=== PATIENT | female | born 1960 | race Caucasian/White ===

== ENCOUNTER 2021-11-28 20:35 | Inpatient (IN) | payer OTHER ==
[~2021-11-28] VITALS: Ht 167.6 cm; Wt 65.1 kg
--- NOTE | 2021-11-28 20:48 | NUR ---
[id number] STERNAL CHEST PAIN RADIATING TO LEFT SHOULDER X YESTERDAY 8 HEADACHE. NOTED WITH ELEVATED BP 189/106. PT ANXIOUS. PATIENT ALERT AND ORIENTED X3. AMBULATORY WITH NON LABORED BREATHING IN BED 11 ON MONITOR AWAITING MD PRATHER.
--- NOTE | 2021-11-28 20:50 | NUR ---
URINE COLLECTED AND SENT TO LAB
--- NOTE | 2021-11-28 20:53 | NUR ---
BLOOD COLLECTED AND SENT TO LAB
--- NOTE | 2021-11-28 20:59 | NUR ---
EMT @ BEDSIDE FOR EKG.
--- NOTE | 2021-11-28 21:11 | NUR ---
CALLED LAB FOR SPECIMEN PICKUP.
[2021-11-28 21:30] LABS: BASOPHILS # (AUTO) 0.1 K/uL (0.0-0.2); BASOPHILS % (AUTO) 0.8 % (0.0-2.0); EOSINOPHILS % (AUTO) 1.1 % (0.0-6.0); HEMATOCRIT 34 % (33-45); HEMOGLOBIN 11.5 g/dL (11.5-14.8); LYMPHOCYTES # (AUTO) 3.2 K/uL (0.8-4.8); LYMPHOCYTES % (AUTO) 34.9 % (20.0-44.0); MEAN CORPUSCULAR HGB CONC 34 g/dl (31.0-36.0); MEAN CORPUSCULAR VOLUME 86 fL (82-100); NEUTROPHILS # (AUTO) 4.9 K/uL (1.8-8.9); NEUTROPHILS % (AUTO) 52.2 % (43.0-81.0); PLATELET COUNT (AUTO) 413 K/uL (150-450); RED BLOOD CELL COUNT(AUTO) 3.99 MIL/uL (4.0-5.2); WHITE BLOOD COUNT (AUTO) 9.3 K/uL (4.3-11.0)
[2021-11-28 21:43] LABS: CALCIUM, SERUM 8.4 mg/dL (8.5-10.1); CARBON DIOXIDE 23 mmol/L (21-32); CHLORIDE 106 mmol/L (98-107); CREATININE 1.1 mg/dL (0.6-1.3); GLUCOSE 279 mg/dL (74-106); POTASSIUM 3.8 mmol/L (3.5-5.1); SODIUM SERUM 139 mmol/L (136-145); UREA NITROGEN, BLOOD 20 mg/dL (7-18)
[2021-11-28] MEDS ORDERED: ASPIRIN 81 MG TAB.CHEW ONE (22:16)
--- NOTE | 2021-11-28 22:24 | NUR ---
ASSISTED PATIENT TO RESTROOM.
--- NOTE | 2021-11-28 22:24 | NUR ---
COVID SWAB DONE AND SENT TO LAB
[2021-11-28] MEDS ORDERED: ASPIRIN 81 MG TAB.CHEW PO ONE (22:30)
[2021-11-28] MEDS ORDERED: MAG HYDROX/AL HYDROX/SIMETH 30 ML UDC PO PRN (23:30)
[2021-11-28] MEDS ORDERED: MAGNESIUM HYDROXIDE 30 ML UDC PO PRN (23:30)
[2021-11-28] MEDS ORDERED: Z GUARD REMEDY 4 OZ OINT TP PRN (23:30)
[2021-11-28] MEDS ORDERED: DEXTROSE 50%-WATER 50 ML DISP.SYRIN IV PRN (23:30)
--- NOTE | 2021-11-28 23:47 | NUR ---
REPORT GIVEN TO AMINAH ASH
--- NOTE | 2021-11-28 23:48 | NUR ---
PATIENT BEING TRANSFERRED TO [facility] VIA ACLS.
[2021-11-29] VITALS: BP 159/75
[2021-11-29] MEDS: ENOXAPARIN SODIUM 40 MG/0.4 ML DISP.SYRIN SQ SCH ×2 (00:11→19:57)
--- NOTE | 2021-11-29 00:15 | NUR ---
PRICK STITCHER ADMITTING NOTES ADMITTED PATIENT FROM ER VIA [facility] ON STABLE CONDITION. PLACED COMFORTABLY IN BED. BED IS IN LOWEST LOCKED POSITION. CALL LIGHTS WITHIN REACH. SKIN ASSESSMENT DONE. BELONGING INVENTORY DONE AND SIGNED BY DELTA MERCADO. WITH IV LINE AT LEFT AC; INTACT. PATIENT IS ON CONSISTENT CARB DIET. VS ARE TAKEN AND RECORDED FOLLOWS: BP 159/75, CO-85, RR-19, TEMP- 97.7. ON OXYGEN INHALATION VIA NC SET AT 2LPM. 97% O2 SATURATION. TELE MONITOR PLACED WITH CURRENT READING OF SR HR 72. PATIENT ORIENTED TO ROOM. SAFETY PRECAUTIONS MAINTAINED. WILL CONTINUE TO MONITOR
[2021-11-29] MEDS: ACETAMINOPHEN 325 MG TABLET PO PRN ×2 (00:17→08:22)
--- NOTE | 2021-11-29 00:20 | NUR ---
CHANNEL OPENER NOTES PATIENT COMPLAINED OF PAIN ON HER UPPER BACK WITH SCALE OF 3; TYLENOL 650 MG 2 TABS GIVEN PO ORDERED.
[2021-11-29 00:28] VITALS: BP 159/75
[2021-11-29 04:00] VITALS: BP 162/70
--- NOTE | 2021-11-29 04:57 | NUR ---
STACKING MACHINE OPERATOR NOTES BP - 162/70 MM HG, HR - 57; MD WYATT TONY MADE AWARE THROUGH SMS; AWAITING FOR ORDER.
[2021-11-29 06:43] LABS: BASOPHILS # (AUTO) 0.1 K/uL (0.0-0.2); BASOPHILS % (AUTO) 1.1 % (0.0-2.0); HEMATOCRIT 31 % (33-45); HEMOGLOBIN 10.5 g/dL (11.5-14.8); LYMPHOCYTES # (AUTO) 2.8 K/uL (0.8-4.8); LYMPHOCYTES % (AUTO) 40.5 % (20.0-44.0); MEAN CORPUSCULAR HGB CONC 34 g/dl (31.0-36.0); MEAN CORPUSCULAR VOLUME 86 fL (82-100); MONOCYTES # (AUTO) 0.7 K/uL (0.1-1.30); MONOCYTES % (AUTO) 9.9 % (2.0-12.0); NEUTROPHILS # (AUTO) 3.1 K/uL (1.8-8.9); NEUTROPHILS % (AUTO) 45.5 % (43.0-81.0); PLATELET COUNT (AUTO) 349 K/uL (150-450); RED BLOOD CELL COUNT(AUTO) 3.61 MIL/uL (4.0-5.2); WHITE BLOOD COUNT (AUTO) 6.8 K/uL (4.3-11.0)
[2021-11-29] MEDS: BLOOD SUGAR DIAGNOSTIC 1 EACH STRIP IN SCH ×4 (06:50→21:14)
[2021-11-29] MEDS: INSULIN REGULAR, HUMAN 100 UNIT/ML 3 ML VIAL SQ PRN ×4 (06:55→21:17)
--- NOTE | 2021-11-29 07:00 | NUR ---
DIRECTORY CLERK NOTES BLOOD SUGAR CHECKED WITH RESULTS OF 218 MG/DL; 4 UNITS OF REGULAR INSULIN GIVEN SQ PER SLIDING SCALE ORDERED.
--- NOTE | 2021-11-29 07:25 | NUR ---
RN OPENING NOTES RECEIVED PATIENT IN BED, AWAKE, A/O X4, VERBALLY RESPONSIVE, NO SIGNS OF ACUTE DISTRESS NOTED. ON O2 @ 2LPM VIA N/C, SATURATION @97%, NO SOB NOTED, BREATHING EVEN AND UNLABORED. ON TELE MONITOR SHOWING SINUS CHHAYA @56. NOT IN CARDIAC DISTRESS. NOTED WITH IV ACCESS ON LEFT ANTECUBITAL #18G, INTACT AND PATENT, FLUSHES WELL, SALINE LOCKED. SAFETY MEASURES IN PLACE, BED LOCKED AND IN LOWEST POSITION, SR UP X2, CALL LIGHT PLACED WITHIN EASY REACH. WILL CONTINUE TO MONITOR PATIENT.
--- NOTE | 2021-11-29 07:28 | NUR ---
TAXATION CONSULTANT CLOSING NOTES PATIENT IS IN BED; AWAKE, ALERT AND ORIENTED X 2-3. BREATHING IS EVEN AND NONLABORED. WITH IV ACCESS AT RIGHT AC G#20; INTACT AND SALINE LOCKED. IN NO ACUTE DISTRESS. NO SOB NOTED. SAFETY MEASURES IN PLACED. ENDORSED TO NURSE ROSALES FOR CONTINUITY OF CARE
[2021-11-29 08:00] VITALS: BP 175/75
[2021-11-29] MEDS: PANTOPRAZOLE 40 MG TABLET.DR PO SCH (08:09)
[2021-11-29] MEDS: METOPROLOL TARTRATE 25 MG TABLET PO SCH ×2 (08:21→16:54)
[2021-11-29] MEDS ORDERED: ASPIRIN EC 81 MG TABLET.DR PO SCH (09:00)
[2021-11-29] MEDS ORDERED: LISINOPRIL (20MG) 20 MG TABLET PO SCH (09:00)
[2021-11-29] MEDS ORDERED: LISINOPRIL (5MG) 5 MG TABLET PO SCH (09:00)
[2021-11-29] MEDS ORDERED: NITROGLYCERIN 0.4 MG/TAB BOTTLE ONE (09:12)
[2021-11-29] MEDS ORDERED: CT SWABBABLE VALVE TRANS SET 1 EA INFUS.SET MC ONE (09:12)
[2021-11-29] MEDS ORDERED: IOHEXOL-350 100 ML VIAL IV ONE (09:12)
[2021-11-29] MEDS ORDERED: IV NS 0.9% 250 ML IV ONE (09:13)
--- NOTE | 2021-11-29 09:20 | NUR ---
RN NOTES PATIENT PICKED-UP FOR CTA, IN STABLE CONDITION.
[2021-11-29 09:47] LABS: ALBUMIN 2.6 g/dL (3.4-5.0); BILIRUBIN,TOTAL 0.2 mg/dL (0.2-1.0); CALCIUM, SERUM 8.8 mg/dL (8.5-10.1); CREATININE 1.1 mg/dL (0.6-1.3); MAGNESIUM 1.5 mg/dL (1.8-2.4); PHOSPHORUS 4.5 mg/dL (2.5-4.9); POTASSIUM 3.9 mmol/L (3.5-5.1); TOTAL PROTEIN, SERUM 5.9 g/dL (6.4-8.2)
--- NOTE | 2021-11-29 10:20 | NUR ---
RN NOTES PATIENT BACK FROM PROCEDURE, CTCA, IN STABLE CONDITION. VITAL SIGNS FOLLOWS: T 97.7, P 50, R 17, BP 129/69, PS 0/10, SPO2 96% IN RA.
[2021-11-29] MEDS ORDERED: OMEP20TA5 PO (14:17)
[2021-11-29] MEDS ORDERED: GLYB1TAB41 PO (14:17)
[2021-11-29] MEDS ORDERED: BACL10TA PO (14:17)
[2021-11-29] MEDS ORDERED: TOLT4CAP14 PO (14:17)
[2021-11-29] MEDS ORDERED: ASPI-1420 PO (14:17)
[2021-11-29] MEDS ORDERED: FERR325T24 PO (14:17)
[2021-11-29] MEDS ORDERED: DIPH25TA27 PO (14:17)
[2021-11-29] MEDS ORDERED: GABA-532 PO (14:17)
[2021-11-29] MEDS ORDERED: SERT50TA12 PO (14:17)
[2021-11-29] MEDS ORDERED: MECL-159 PO (14:17)
[2021-11-29] MEDS ORDERED: MEMA10TA56 PO (14:17)
[2021-11-29] MEDS ORDERED: LORA-259 PO (14:17)
[2021-11-29] MEDS ORDERED: ATOR10TA PO (14:17)
[2021-11-29] MEDS ORDERED: CARB1TAB21 PO (14:17)
[2021-11-29] MEDS ORDERED: LOSA100T31 PO (14:17)
[2021-11-29] MEDS ORDERED: INSU100I26 SQ (14:17)
[2021-11-29] MEDS ORDERED: CARV6.252 PO (14:17)
[2021-11-29] MEDS ORDERED: AMLO-213 PO (14:17)
[2021-11-29] MEDS ORDERED: CILO100T PO (14:17)
[2021-11-29] MEDS ORDERED: INSU100V36 SQ (14:17)
[2021-11-29] MEDS ORDERED: GEMF600T90 PO (14:17)
[2021-11-29] MEDS ORDERED: ERTU5TAB PO (14:17)
[2021-11-29] MEDS ORDERED: IBUP-1957 PO (14:17)
[2021-11-29] MEDS ORDERED: MECLIZINE HCL 25 MG TABLET PO PRN (15:00)
[2021-11-29] MEDS ORDERED: LOSARTAN POTASSIUM 50 MG TABLET PO SCH (15:00)
[2021-11-29] MEDS ORDERED: LORAZEPAM 1 MG TABLET PO PRN (15:00)
[2021-11-29] MEDS ORDERED: BACLOFEN (10 MG) 10 MG TABLET PO PRN (15:00)
[2021-11-29 16:00] VITALS: BP 128/58
--- NOTE | 2021-11-29 16:07 | NUR ---
SS Consult: SS consult for living alone. Pt. Is a 61-year-old female who demonstrates adequate insight to the reason for hospitalization. Per pt., she presented herself to hospital for chest pain. Pt. was oriented x2-3, alert, and cooperative. During interview, pt. was capable of following directions, made appropriate eye-contact, and appeared well-groomed. Pt.s speech was at a normal rate and pt.s mood was elevated. Pt. reported no hx of mental health, substance abuse, suicidal ideation, or homicidal ideation. Pt. denies auditory hallucinations, visual hallucinations, paranoia, or delusions. Per pt., she only smokes cigarettes. SW explored pt.s living situation. Per pt., she lives alone [[address] [place] [id number]]. Pt. stated that she has a caregiver [Aimee, ] that comes every day. Per pt., she reports having adequate support from caregiver and family. Per pt., her family visits when they can. Plan: SW provided available resources and pt. accepted. EDA made an APS report for pt.s safety. APS Intake #[id number] Resources Provided: ABUSE PREVENTION: ELDER ABUSE HOTLINE (18/03) ADULT PROTECTIVE SERVICES HOTLINE LONG-TERM CARE [facility] Region AREA ON AGING (HOTLINE) ADULT DAY HEALTH CARE CARE CENTERS: Private pay or [facility] funded adult day care [place] Adult [facility] Care [facility] [place] , [facility] Services , [facility] Adult Care Center , [facility] Adult Day Health Care , [facility] Adult Day Health Care , [facility] Adult Daycare Center , [facility] , [facility] Adult [place] , [place] ALZHEIMERS DISEASE/DEMENTIA: Alzheimers Association Helpline [facility] Chapter www.alz.org/[facility] Department of Aging www.lacity.org Family Caregiver [place] www.caregiver.org [place] Caregiver Resources Center/Family Support www.[facility].org CANCER RESOURCES: [place] Cancer Society www.cancer.org Cancer Support Community www.CancerSupportVvsb.org: CancerCare www.cancercare.org [facility] Cancer Support [place] www.Blue Lava Group.org NOVANT HEALTH HEALTH ASSOCIATIONS: AARP www.aarp.org ALS Association (ask for Arlette) www.als.org [place] Diabetes Association www.diabetes.org [place] Heart Association www.heart.org [place] Lung Association www.lungusa.org [place] Parkinson Disease Association www.apdaparkinson.org [place] Wright , www.redcross.org Arthritis Foundation www.arthritis.org Crohns & Colitis Foundation of [place] www.ccfa.org/chapters/sheila National Multiple Sclerosis Society www.nationalmssociety.org Myasthenia Gravis Foundation www.myasthenia-ca.org National Stroke Association www.stroke.org CONSERVATORSHIP & GUARDIANSHIP: AARP Angela Beltran Legal Services Center for Health Care Rights Eldercare Information and Referral Mowing Machine Operator Foundation [facility]: [facility] Bar Referral Service [facility] Legal Services Office of the Public Guardian [place] EYESIGHT DISORDER RESOURCES: [place] Macular Degeneration Foundation [facility] www.[facility]ace [facility].org GRIEF AND BEREAVEMENT RESOURCES: The Gathering Place , [facility] THE HOPE Connection , [facility] Bereavement Center , [place] HEARING DISORDER RESOURCES: [place] Telephone Access Program Deaf and Disabled Telecommunications Program www.ddtp.cpu.ca.gov HearRx Hearing Centers ([place]) Better Hearing Systems , [place] GLAD ([facility] Agency on Deafness) V/ TTY; Reimbursement Consultant , [facility] -low income hearing aid assistance www.hca [facility] poinciana hospitalfoundation.org [place] Hearing Care , [place] HELP AT HOME CAREGIVER SUPPORT: In Home Support Services (Must have Medi-Andrew to be eligible) *Ask for a list of agencies that provide services to assist with care in the home. Local Senior Centers also have listings of care providers. HOME SAFETY MODIFICATIONS AND EQUIPMENT: Senior centers have additional referrals. [place] Housing and Community Investment Dept. Handyworker Program (low income) or Visit http://hcidla.lacity.org/xtp-lolvsh-ll for more information National Seating and Mobility and/or ; Forever Active www.foreveractivemed.com Stay Home Safe www.Stayhomesafe.com LIFE ALERT RESPONSE SYSTEM: [place] Lifeline Services 051-942-9689 www. Epocrates.Entourage Medical Technologies Life Alert 028-972-6026 www.BreakingPoint Systems.Entourage Medical Technologies Life Station [phone] www.Secret Escapes.[employer]ourage Medical Technologies Safe Return [phone] www.alz.or/safereturn Cell Phones for Seniors www.Mobidia Technology MEALS AND FOOD PROGRAMS: [place]uff Meals on Wheels [phone] [place] Meals on Wheels [phone] [facility] [phone] [place] to the Homebound [phone] [place] to the Homebound [phone] [facility] to the Homebound [phone] [facility] to the Homebound [phone] [facility] [phone] [facility] [phone] ONE Generation [phone] [facility] [phone] [facility] [phone] Meals on Wheels [phone] For all ages: $6.85/ meal w side. Delivered M-F from 10 am-1pm. Application and payment is done over the phone. Frozen meals available for weekends. Emergency Food [facility] [phone] [facility] Cotton Puller [phone] [facility] [phone] [facility]- Brown bag lunches [phone] [facility] [phone] MEAL/GROCERY DELIVERY PROGRAMS: [facility] Gourmet Meals [phone]- [facility] [phone]- [facility] Magic Kitchen [phone] Moms Meals [phone] (ask Dasilva for Discount Select grocery stores may provide delivery. MEDICAL INSURANCE SUPPORT SERVICES: Center for Health Care Rights [phone] Health Insurance Counseling/Advocacy Programs (HICAP)-Must have Medicare. Offers counseling for Medi-Andrew eligibility [phone] Department of Public Cotton [place]er [phone] www.[facility].ca.gov Medicare [phone] www.socialsecurity.org Social Security [phone] SENIOR ACTIVITY PROGRAMS: *Contact a local senior center, adult school, recreation facility or community [facility] for education, fitness, recreation, and social programs. Aquatic Therapy and Adapted Exercise programs through [facility] [phone] Encore at [facility] [phone] www.[facility]/encore U- Senior Friends [phone] [place] Senior Programs [phone] www.oasisnet.org Suddenly 65 www.kvzvxdap49.com SENIOR CENTERS: [facility] Heart [phone] [facility] [phone] [facility] [phone] [facility] [phone] [facility] [phone] [facility] [phone] [facility] [phone] [facility] [phone] One Generation [facility] [phone] [facility] [phone] [facility] [phone] [facility] [phone] [facility] [phone] TRANSPORTATION: Local [facility] may have applications for transportation programs and additional resources. ACCESS Services [phone] Transportation for seniors and disabled persons 7 days a week requiring 254 hr. advance reservation. Must apply and register for program katelyn eligible. SoapBox Soaps R[employer]pex [employer]rapeutics [phone] or [phone] Transportation for seniors and persons with ADA card/metro disabled card in the [facility]. M-F only. Must register for services. ONE GENERATION [phone] Serves 65 years + in conjunction with city ride program. Must be registered with both programs. A to B Transport [phone] Provides wheelchair/gurney van service. Adult Medical Transport [phone] Accepts [facility] with prior authorization. Care Van [phone] Provides wheelchair Transport. [facility] Wide Transportation [phone] Provides gurney service Gentle Care [phone] Gurney Transport. All Town Transportation [phone] wheelchair & gurney transport D Transportation [phone] wheelchair & gurney transport [place] Non-Emergency Transport [phone] wheelchair & gurney transport [facility] Living [place] [phone] Short Term Transportation primarily for adults with disabilities on social security income. Nominal fee may apply and a reservation is required. [facility] Cab [phone] or [phone] [facility] [phone] [place] [address] Referral Services -[phone] For additional programs & services VETERANS RESOURCES: Submissions for Aid and Attendance should be done directly to Federal VA office locatd at : [address] [address] X110 National Caregiver Support Line [phone] [facility] Veterans Services Field Office [phone] [place] Department of [place] Affairs [phone] Pension Information [phone]
[2021-11-29] MEDS: GEMFIBROZIL 600 MG TABLET PO SCH (16:53)
[2021-11-29] MEDS: glyBURIDE 5 MG TABLET PO SCH (16:53)
[2021-11-29] MEDS: GABAPENTIN 300 MG CAPSULE PO SCH (16:53)
[2021-11-29] MEDS: CARBIDOPA/LEVODOPA 25/100 MG 1 UDTAB PO SCH (16:53)
[2021-11-29] MEDS: METFORMIN 500 MG TABLET PO SCH (16:55)
[2021-11-29] MEDS ORDERED: glyBURIDE/METFORMIN 5-500 MG 1 EACH TABLET PO SCH (17:00)
--- NOTE | 2021-11-29 17:00 | NUR ---
RN NOTES METFROMIN WITHHELD, S/P CTCA.
[2021-11-29] MEDS: CILOSTAZOL 100 MG TABLET PO SCH (17:03)
[2021-11-29] MEDS: ATORVASTATIN 10 MG TABLET PO SCH (17:03)
--- NOTE | 2021-11-29 18:33 | NUR ---
RN NOTES RECEIVED A CALL FROM DR. BRINK WITH ORDER TO KEEP PATIENT NPO AFTER MIDNIGHT FOR LEFT HEART CATH TOMORROW MORNING. ORDER CARRIED OUT. PATIENT MADE AWARE OF NEW ORDER.
--- NOTE | 2021-11-29 18:55 | NUR ---
RN CLOSING NOTES PATIENT IN BED, AWAKE, A/O X4, NO SIGNS OF ACUTE DISTRESS NOTED. CURRENTLY ON ROOM AIR, NO SOB NOTED, BREATHING EVEN AND UNLABORED. ON DIRECTOR IT PROJECT SHOWING SINUS @60. IV ACCESS ON LAC #20 G AND RAC #18G INTACT AND PATENT, SALINE LOCKED. ALL DUE MEDS GIVEN, TOLERATED WELL. SAFETY MEASURES MAINTAINED. WILL ENDORSE TO NEXT SHIFT FOR CONTINUITY OF CARE.
[2021-11-29] MEDS: IBUPROFEN 400 MG TABLET PO PRN (19:03)
[2021-11-29 20:00] VITALS: BP 168/64
[2021-11-29] MEDS: CARVEDILOL 6.25 MG TABLET PO SCH (21:15)
[2021-11-29] MEDS: INSULIN GLARGINE, 100 UNIT/ML CARTRIDGE SQ SCH (21:17)
[2021-11-29] MEDS ORDERED: INSULIN GLARGINE,BASAGLAR 100 UNIT/ML INSULN.PEN SQ SCH (22:00)
[2021-11-30] VITALS (27 sets, daily range): BP systolic 121–208; BP diastolic 51–110
[2021-11-30] MEDS: BLOOD SUGAR DIAGNOSTIC 1 EACH STRIP IN SCH ×4 (05:30→21:20)
--- NOTE | 2021-11-30 06:08 | NUR ---
TRAINING SPECIALIST NOTES AWAKE & RESPONSIVE. NOT IN ANY DISTRESS. NO SOB NOTED. DENIES ANY PAIN OR DISCOMFORT AT THIS TIME. KEEP NPO X MEDS. ON TELE SB @ 52 WITH IV-HL PATENT & INTACT. CALL LIGHT WITHIN REACH. BED IN LOWEST POSITION. SR UP X 2 FOR SAFETY. WILL ENDORSE TO NEXT SHIFT.
[2021-11-30 06:29] LABS: BASOPHILS % (AUTO) 0.7 % (0.0-2.0); EOSINOPHILS % (AUTO) 3.5 % (0.0-6.0); HEMATOCRIT 30 % (33-45); HEMOGLOBIN 10.2 g/dL (11.5-14.8); LYMPHOCYTES # (AUTO) 2.2 K/uL (0.8-4.8); LYMPHOCYTES % (AUTO) 31.5 % (20.0-44.0); MEAN CORPUSCULAR HGB CONC 34 g/dl (31.0-36.0); MEAN CORPUSCULAR VOLUME 86 fL (82-100); MONOCYTES # (AUTO) 0.7 K/uL (0.1-1.30); MONOCYTES % (AUTO) 9.5 % (2.0-12.0); NEUTROPHILS # (AUTO) 3.8 K/uL (1.8-8.9); NEUTROPHILS % (AUTO) 54.8 % (43.0-81.0); PLATELET COUNT (AUTO) 337 K/uL (150-450); RED BLOOD CELL COUNT(AUTO) 3.49 MIL/uL (4.0-5.2)
[2021-11-30 06:41] LABS: CALCIUM, SERUM 8.3 mg/dL (8.5-10.1); CREATININE 1.1 mg/dL (0.6-1.3); PHOSPHORUS 5.2 mg/dL (2.5-4.9); POTASSIUM 3.6 mmol/L (3.5-5.1)
[2021-11-30] MEDS: PANTOPRAZOLE 40 MG TABLET.DR PO SCH (07:30)
--- NOTE | 2021-11-30 07:52 | NUR ---
SENIOR ELECTRICAL CONTROLS ENGINEER OPENING NOTE RECEIVED PATIENT AWAKE IN BED. A/O X 4. NO S/SX OF DISTRESS NOTED. NO SOB. NO C/O PAIN. BREATHING IS EVEN AND UNLABORED. PT TOLERATING WELL ON ROOM AIR WITH SATURATION AT 98%. IV ACCESS LAC#20 AND RAC #18 PATENT AND INTACT-SL. PT WITH EXTERNAL HOP PICKER READING SB-SR. SAFETY MEASURES IN PLACE WITH BED LOCKED IN LOW POSITION. SIDE RAILS UP X2. CALL LIGHT IS WITHIN REACH. WILL CONTINUE TO MONITOR PATIENT THROUGHOUT SHIFT.
[2021-11-30] MEDS: ASPIRIN EC 81 MG TABLET.DR PO SCH (08:11)
[2021-11-30] MEDS: glyBURIDE 5 MG TABLET PO SCH ×2 (08:11→17:18)
[2021-11-30] MEDS: LOSARTAN POTASSIUM 50 MG TABLET PO SCH (08:11)
[2021-11-30] MEDS: GEMFIBROZIL 600 MG TABLET PO SCH ×2 (08:12→17:19)
[2021-11-30] MEDS: METOPROLOL TARTRATE 25 MG TABLET PO SCH ×2 (08:12→17:18)
[2021-11-30] MEDS: AMLODIPINE BESYLATE 10 MG TABLET PO SCH (08:12)
[2021-11-30] MEDS: CARBIDOPA/LEVODOPA 25/100 MG 1 UDTAB PO SCH ×3 (08:12→17:18)
[2021-11-30] MEDS: MEMANTINE HCL 5 MG TABLET PO SCH (08:12)
[2021-11-30] MEDS: METFORMIN 500 MG TABLET PO SCH (08:12)
[2021-11-30] MEDS: FERROUS SULFATE (325 MG) 325 MG/TAB TABLET PO SCH (08:12)
[2021-11-30] MEDS: SERTRALINE HCL 50 MG TABLET PO SCH (08:12)
[2021-11-30] MEDS: GABAPENTIN 300 MG CAPSULE PO SCH ×2 (08:13→17:18)
[2021-11-30] MEDS ORDERED: IV SET PRIMARY PUMP SET 1 EA INFUS.SET MC ONE (08:26)
[2021-11-30] MEDS ORDERED: IV NS 0.9% 1,000 ML ONE (08:26)
[2021-11-30] MEDS ORDERED: IODIXANOL 150 ML IV ONE (08:26)
[2021-11-30] MEDS ORDERED: NITROGLYCERIN IN 5 % DEXTROSE 250 ML IV ONE (08:27)
[2021-11-30] MEDS ORDERED: LIDOCAINE HCL/MPF 1% 30 ML VIAL IJ ONE (08:27)
[2021-11-30] MEDS ORDERED: MIDAZOLAM HCL 2 MG/2ML VIAL ONE (08:29)
[2021-11-30] MEDS ORDERED: FENTANYL PF 100MCG/2ML AMPUL ONE (08:29)
[2021-11-30] MEDS ORDERED: LISINOPRIL (20MG) 20 MG TABLET PO SCH (09:00)
[2021-11-30] MEDS ORDERED: NICARDIPINE HCL 25 MG/10 ML VIAL IV ONE (09:31)
[2021-11-30] MEDS ORDERED: HEPARIN SODIUM, PORCINE 5000 UNITS/1 ML VIAL ONE (09:41)
[2021-11-30] MEDS ORDERED: IODIXANOL 320MG/ML 50 ML IV ONE (09:41)
--- NOTE | 2021-11-30 09:43 | NUR ---
APS Worker, Gwen [phone] called to ask if pt. is still int hospital. SW notified pt. that Gwen is still here.
[2021-11-30] MEDS ORDERED: TICAGRELOR 90 MG TABLET PO ONE (09:51)
[2021-11-30] MEDS ORDERED: HEPARIN SODIUM, PORCINE 1,000 UNIT/ML VIAL ONE (10:01)
--- NOTE | 2021-11-30 10:45 | NUR ---
rn notes patient transferred from Post cardiac peripheral catheterization after procedure. patient on TR band , pulse is present, surrounding tissue is soft, noted small amount of blood. patient a/o x4, was complaining of pain upper back 4/10 per pain scale. started NS @ 100ml/hr x6 hr, on RAC area intact. needs attended and anticipated. bp-158/72, p-57, r-14. new order taken, and carried out. call light within to reach. will follow up.
[2021-11-30] MEDS ORDERED: IV NS 0.9% 1,000 ML IV SCH (11:30)
--- NOTE | 2021-11-30 11:42 | NUR ---
METAL DEALER NOTE PT TRANSFERRED TO ICU ROOM 255-1 POST L HEART CATH. REPORT GIVEN TO [facility] PREDATORY ANIMAL HUNTER. ALL BELONGINGS AND MEDS IN CASSETTE GIVEN TO AMINAH SORTO. DAUGHTER SALVATORE AWARE OF PT TRANSFER.
[2021-11-30] MEDS: ONDANSETRON HCL/PF 4 MG/2 ML VIAL IVP PRN ×2 (13:23→19:11)
--- NOTE | 2021-11-30 13:23 | NUR ---
rn notes administered zofran 4 mg/ml iv push for nausea, also patient on pain uper back 02/02, bp 192/86, p-57. notified hospitalist for orders. will follow up.
--- NOTE | 2021-11-30 14:25 | NUR ---
rn notes started TR band air remove at this time removed 3 ml of air. no bleeding noted, surrounding tissue is soft . will follow up.
[2021-11-30] MEDS: MORPHINE SULFATE INJ 2 MG/ML DISP.SYRIN IV PRN ×2 (14:27→18:19)
--- NOTE | 2021-11-30 14:27 | NUR ---
rn notes administered morphine sulfate 2 mg/ml iv push for generalized pain 04/04 per patient request, bp 178/76, p-77, r-18, family next to the bed. will follow up.
--- NOTE | 2021-11-30 14:40 | NUR ---
rn notes removed 4 ml of air, no bleeding. pulse is present, bp -161/ 69, p-78,, r-20. patient eating .
--- NOTE | 2021-11-30 14:55 | NUR ---
rn notes removed 4 ml/of air at this time, pulse is present.
[2021-11-30] MEDS: hydrALAZINE HCL IV 20 MG VIAL IV PRN ×2 (15:13→19:07)
--- NOTE | 2021-11-30 15:13 | NUR ---
rn notes administered Apresoline 10mg/ml iv push for bp 173/72, p-61. medication were administered for pain effective. also removed 3 ml of air. pulse is present. no bleeding noted. will follow up.
--- NOTE | 2021-11-30 18:19 | NUR ---
RN NOTES ADMINISTERED MORPHINE SULFATE 2 MG/ML IV PUSH FOR GENERALIZED PAIN 04/04 PER PATIENT REQUEST, BP 181/87, P-85, R-16, DUE MEDICATION ADMINISTERED PM CARE DONE. ENDORSED ONCOMING NURSE FOLLOW PLAN OF CARE.
[2021-11-30] MEDS: CILOSTAZOL 100 MG TABLET PO SCH (18:24)
[2021-11-30] MEDS: ATORVASTATIN 10 MG TABLET PO SCH (18:24)
--- NOTE | 2021-11-30 19:07 | NUR ---
rn notes administered Ativan 1 mg po prn for anxiety, and Apresoline 10mg/ml iv push for bp 201/110, p-89.
--- NOTE | 2021-11-30 19:11 | NUR ---
rn notes administered Zofran 4 mg ml iv push for nausea,
[2021-11-30] MEDS: CARVEDILOL 6.25 MG TABLET PO SCH (21:10)
[2021-11-30] MEDS: IBUPROFEN 400 MG TABLET PO PRN (21:11)
[2021-11-30] MEDS: ENOXAPARIN SODIUM 40 MG/0.4 ML DISP.SYRIN SQ SCH (21:15)
[2021-11-30] MEDS: INSULIN REGULAR, HUMAN 100 UNIT/ML 3 ML VIAL SQ PRN (21:17)
[2021-11-30] MEDS: INSULIN GLARGINE, 100 UNIT/ML CARTRIDGE SQ SCH (21:19)
[2021-12-01] VITALS (11 sets, daily range): BP systolic 123–151; BP diastolic 45–84
[2021-12-01 04:19] LABS: BASOPHILS % (AUTO) 0.3 % (0.0-2.0); EOSINOPHILS % (AUTO) 1.6 % (0.0-6.0); HEMATOCRIT 29 % (33-45); LYMPHOCYTES # (AUTO) 1.7 K/uL (0.8-4.8); LYMPHOCYTES % (AUTO) 21.2 % (20.0-44.0); MEAN CORPUSCULAR HGB CONC 34 g/dl (31.0-36.0); MEAN CORPUSCULAR VOLUME 86 fL (82-100); MONOCYTES # (AUTO) 0.6 K/uL (0.1-1.30); MONOCYTES % (AUTO) 7.3 % (2.0-12.0); NEUTROPHILS # (AUTO) 5.5 K/uL (1.8-8.9); NEUTROPHILS % (AUTO) 69.6 % (43.0-81.0); PLATELET COUNT (AUTO) 346 K/uL (150-450); RED BLOOD CELL COUNT(AUTO) 3.41 MIL/uL (4.0-5.2); WHITE BLOOD COUNT (AUTO) 7.9 K/uL (4.3-11.0)
[2021-12-01 04:32] LABS: CALCIUM, SERUM 8.2 mg/dL (8.5-10.1); CREATININE 1.3 mg/dL (0.6-1.3); MAGNESIUM 1.8 mg/dL (1.8-2.4); PHOSPHORUS 3.7 mg/dL (2.5-4.9); POTASSIUM 3.9 mmol/L (3.5-5.1)
--- NOTE | 2021-12-01 06:00 | NUR ---
RN CLOSING NOTE PATIENT RESTING IN BED. A/OX4. TOLERATING ROOM AIR. COMPLAINTS OF PAIN WHERE TR BAND WAS. MOTRIN GIVEN. MANAGED PAIN. SINUS RHTYHM ON THE MONITOR. AFEBRILE. VSS. IV ACCESS MAINTAINED. USED BSC, NO BM THIS SHIFT. SNACKS GIVEN. SAFETY MEASURES IN PLACE.
[2021-12-01] MEDS: BLOOD SUGAR DIAGNOSTIC 1 EACH STRIP IN SCH (07:44)
[2021-12-01] MEDS: SERTRALINE HCL 50 MG TABLET PO SCH (07:51)
[2021-12-01] MEDS: CARBIDOPA/LEVODOPA 25/100 MG 1 UDTAB PO SCH (07:51)
[2021-12-01] MEDS: PANTOPRAZOLE 40 MG TABLET.DR PO SCH (07:51)
[2021-12-01] MEDS: GABAPENTIN 300 MG CAPSULE PO SCH (07:51)
[2021-12-01] MEDS: ASPIRIN EC 81 MG TABLET.DR PO SCH (07:51)
[2021-12-01] MEDS: METOPROLOL TARTRATE 25 MG TABLET PO SCH (07:52)
[2021-12-01] MEDS: GEMFIBROZIL 600 MG TABLET PO SCH (07:53)
[2021-12-01] MEDS: MEMANTINE HCL 5 MG TABLET PO SCH (07:53)
[2021-12-01] MEDS: AMLODIPINE BESYLATE 10 MG TABLET PO SCH (07:53)
[2021-12-01] MEDS: FERROUS SULFATE (325 MG) 325 MG/TAB TABLET PO SCH (07:53)
[2021-12-01] MEDS: LOSARTAN POTASSIUM 50 MG TABLET PO SCH (07:54)
[2021-12-01] MEDS: glyBURIDE 5 MG TABLET PO SCH (07:54)
[2021-12-01] MEDS: INSULIN REGULAR, HUMAN 100 UNIT/ML 3 ML VIAL SQ PRN (07:56)
--- NOTE | 2021-12-01 07:57 | NUR ---
rn notes patient awake a/o x4, refused pain, bs-158mg/dl coverage given. no acute respiratory distress, due medication administered, vss. patient using bedside commode. see golf club weighter Dr Zhang and patient going to be discharge home, and will follow pcp, and golf club weighter. call light within to reach,. will follow up.
[2021-12-01 08:39] LABS: IRON, SERUM 27 ug/dl (50-175); TOTAL IRON BINDING CAPACITY 264 ug/dl (250-450)
[2021-12-01 08:53] LABS: FERRITIN 45 ng/mL (8-388)
[2021-12-01] MEDS ORDERED: AMLODIPINE BESYLATE 10 MG TABLET PO SCH (09:00)
[2021-12-01] MEDS ORDERED: VALSARTAN 80 MG TABLET PO SCH (09:00)
[2021-12-01] MEDS ORDERED: TICAGRELOR 90 MG TABLET PO SCH (09:00)
[2021-12-01] MEDS ORDERED: TICA90TA PO (10:58)
--- NOTE | 2021-12-01 11:45 | NUR ---
CURING PRESS MAINTAINER NOTES PATIENT DISCHARGE AT THIS TIME GOING HOME SELF CARE. MED RECONCILIATION AND DISCHARGE ORDER REVIEWED AND EXPLAINED TO THE PATIENT. PATIENT VERBALIZED UNDERSTANDING. BELONGING WITH THE PATIENT. PATIENT SIGN PAPERWORK. MEDICATION ELECTRONICALLY DONE VIA HOSPITALIST Dr PUCKETT. HANDED PAPERWORK TO THE PATIENT. PATIENT WILL FOLLOW UP MARINE METEOROLOGIST Dr PALMA, AND PCP. ESCORTED PATINT TO THE LOBBY FOR SAFETY. PATIENT AIR INTELLIGENCE OFFICER VIA DAUGHTER NAME SALVATORE.
[2021-12-03] MEDS ORDERED: METFORMIN 500 MG TABLET PO SCH (09:00)
[2021-12-08] MEDS ORDERED: CARV12.52 PO (10:34)
== END 2021-12-01 11:40 | disposition home or self-care (01) | DRG 175 ==
LOC: ER 20:36 → TELE 23:40 → ICU 11-30 10:41
PROVIDERS: ADMIT Hospitalist; ATTEND Nurse Practitioner Acute Care
PROC: 027035Z Dilation of Coronary Artery, One Artery with Two Drug-eluting Intraluminal Devices, Percutaneous Approach (ICD-10-PCS; principal; 2021-11-30)
PROC: 4A023N7 Measurement of Cardiac Sampling and Pressure, Left Heart, Percutaneous Approach (ICD-10-PCS; 2021-11-30)
PROC: B215YZZ Fluoroscopy of Left Heart using Other Contrast (ICD-10-PCS; 2021-11-30)
DX: I25.110 Atherosclerotic heart disease of native coronary artery with unstable angina pectoris (principal); F03.90 Unspecified dementia, unspecified severity, without behavioral disturbance, psychotic disturbance, mood disturbance, and anxiety; E87.1 Hypo-osmolality and hyponatremia; I10 Essential (primary) hypertension; E11.65 Type 2 diabetes mellitus with hyperglycemia; I70.0 Atherosclerosis of aorta; Z79.4 Long term (current) use of insulin; Z79.82 Long term (current) use of aspirin; Z79.899 Other long term (current) drug therapy; Z79.84 Long term (current) use of oral hypoglycemic drugs; Z79.02 Long term (current) use of antithrombotics/antiplatelets
CPT/HCPCS: 36415; 71045-TC; 75574; 80048-TC; 80053-TC; 80061-TC; 82728-TC; 82962-TC; 83540-TC; 83735-TC; 83880; 84100-TC; 84484-TC; 85025-TC; 85347; 85610-TC; 85730-TC; 87081-TC; 92980; 93307-TC; C1725; C1887; C9803; G0378; G0500; J0360; J1644; J1650; J1815; J2250; J2270; J2405; J3010; J3490; J7030; J7050; J8597; Q9967

== ENCOUNTER 2021-12-06 21:37 | Inpatient (IN) | payer OTHER ==
[~2021-12-06] VITALS: Ht 167.6 cm; Wt 57.2 kg
[~2021-12-06 21:37] MED LIST: AMLO-213 PO; ASPI-1420 PO; ATOR10TA PO; BACL10TA PO; CARB1TAB21 PO; CARV6.252 PO; CILO100T PO; ERTU5TAB PO; FERR325T24 PO; GABA-532 PO; GEMF600T90 PO; GLYB1TAB41 PO; INSU100I26 SQ; INSU100V36 SQ; LORA-259 PO; LOSA100T31 PO; MEMA10TA56 PO; OMEP20TA5 PO; SERT50TA12 PO; TICA90TA PO; TOLT4CAP14 PO
--- NOTE | 2021-12-06 21:49 | NUR ---
DANCE THERAPIST L HAND #20G S/L; PATENT AND INTACT.
[2021-12-06 22:13] LABS: BASOPHILS # (AUTO) 0.1 K/uL (0.0-0.2); BASOPHILS % (AUTO) 0.8 % (0.0-2.0); EOSINOPHILS % (AUTO) 4.3 % (0.0-6.0); HEMATOCRIT 34 % (33-45); HEMOGLOBIN 11.5 g/dL (11.5-14.8); LYMPHOCYTES # (AUTO) 2.2 K/uL (0.8-4.8); MEAN CORPUSCULAR HGB CONC 34 g/dl (31.0-36.0); MEAN CORPUSCULAR VOLUME 87 fL (82-100); MONOCYTES # (AUTO) 0.7 K/uL (0.1-1.30); MONOCYTES % (AUTO) 9.3 % (2.0-12.0); NEUTROPHILS # (AUTO) 4.3 K/uL (1.8-8.9); NEUTROPHILS % (AUTO) 56.6 % (43.0-81.0); PLATELET COUNT (AUTO) 420 K/uL (150-450); RED BLOOD CELL COUNT(AUTO) 3.93 MIL/uL (4.0-5.2); WHITE BLOOD COUNT (AUTO) 7.6 K/uL (4.3-11.0)
[2021-12-06 22:21] LABS: CARBON DIOXIDE 22 mmol/L (21-32); CHLORIDE 103 mmol/L (98-107); CREATININE 1.2 mg/dL (0.6-1.3); GLUCOSE 186 mg/dL (74-106); SODIUM SERUM 137 mmol/L (136-145); UREA NITROGEN, BLOOD 27 mg/dL (7-18)
[2021-12-06] MEDS ORDERED: MORPHINE SULFATE INJ 4 MG/ML DISP.SYRIN ONE (22:22)
--- NOTE | 2021-12-06 22:22 | NUR ---
COVID ANTIGEN SWAB COLLECTED AND SENT TO LAB
[2021-12-06] MEDS ORDERED: NITROGLYCERIN 0.4 MG/TAB BOTTLE ONE (22:23)
[2021-12-06] MEDS ORDERED: MORPHINE SULFATE INJ 2 MG/ML DISP.SYRIN IV ONE (22:30)
[2021-12-06] MEDS ORDERED: NITROGLYCERIN 0.4 MG/TAB BOTTLE SL ONE (22:30)
--- NOTE | 2021-12-06 23:48 | NUR ---
ALICIA FOSTER ON PHONE CALL WITH DR PALMA
[2021-12-07] MEDS ORDERED: ENOXAPARIN SODIUM 60 MG/0.6 ML DISP.SYRIN SQ ONE (00:04)
[2021-12-07] MEDS ORDERED: BACLOFEN (10 MG) 10 MG TABLET PO PRN (00:30)
[2021-12-07] MEDS ORDERED: ZOLPIDEM TARTRATE 5 MG TABLET PO PRN (00:30)
[2021-12-07] MEDS ORDERED: INSULIN REGULAR, HUMAN 100 UNIT/ML 3 ML VIAL SQ PRN ×2 (00:30→13:00)
[2021-12-07] MEDS ORDERED: MAG HYDROX/AL HYDROX/SIMETH 30 ML UDC PO PRN (00:30)
[2021-12-07] MEDS ORDERED: LOSARTAN POTASSIUM 50 MG TABLET PO SCH (00:30)
[2021-12-07] MEDS ORDERED: MAGNESIUM HYDROXIDE 30 ML UDC PO PRN (00:30)
[2021-12-07] MEDS ORDERED: LORAZEPAM 1 MG TABLET PO PRN (00:30)
[2021-12-07] MEDS ORDERED: Z GUARD REMEDY 4 OZ OINT TP PRN (00:30)
[2021-12-07] MEDS ORDERED: NITROGLYCERIN 0.4 MG/TAB BOTTLE SL PRN (00:30)
[2021-12-07] MEDS ORDERED: ASPIRIN 325 MG TABLET PO ONE (00:30)
[2021-12-07] MEDS ORDERED: DEXTROSE 50%-WATER 50 ML DISP.SYRIN IV PRN ×2 (00:30→13:00)
[2021-12-07] MEDS ORDERED: ACETAMINOPHEN 325 MG TABLET PO PRN (00:30)
[2021-12-07] MEDS ORDERED: MORPHINE SULFATE INJ 2 MG/ML DISP.SYRIN IV PRN (00:30)
[2021-12-07] MEDS ORDERED: ONDANSETRON HCL/PF 4 MG/2 ML VIAL IVP PRN (00:30)
[2021-12-07] MEDS ORDERED: ENOXAPARIN SODIUM 30 MG/0.3 ML DISP.SYRIN IV SCH ×2 (01:12)
--- NOTE | 2021-12-07 01:16 | NUR ---
report given to marcelino arriaga
[2021-12-07 01:30] VITALS: BP 151/76
--- NOTE | 2021-12-07 01:30 | NUR ---
OVERHAULER BUS TRUCKDEHYDRATOR OPERATOR NOTES RECEIVED PATIENT FROM ER VIA [facility]. A/O X3. AMBULATORY W/ SBA. NO APPARENT DISTRESS NOTED. BREATHING EVEN AND UNLABORED. C/O PAIN ON HER LEFT CHEST RADIATING TO HER SHOULDER AND ARM. HAS LEFT HAND IV ACCESS #20G AND SALINE LOCKED. NO S/S OF INFILTRATION NOTED. ROM WNL. SKIN ASSESSMENT DONE AND PHOTOS TAKEN. SAFETY PRECAUTIONS IN PLACED. WILL CONTINUE PLAN OF CARE. Addendum: 12/07/21 at 0514 by January GRETTA BURR VERBALIZED SHE IS FORGETFUL AND HAS A CAREGIVER AT HOME.
--- NOTE | 2021-12-07 02:00 | NUR ---
PATIENT TRANSFERRED UNDER ACLS
[2021-12-07 04:00] VITALS: BP 159/82
--- NOTE | 2021-12-07 07:10 | NUR ---
SOFTWARE ENGINEER KERNEL CLOSING NOTES PATIENT LYING IN BED ASLEEP, EASY TO AROUSE. A/O X3. NO ACUTE DISTRESS NOTED. ON O2 AT 2 LPM VIA NASAL CANULA. BREATHING EVEN AND UNLABORED. NO C/O PAIN AT THIS TIME. ON TELE MONITORING READING SINUS RHYTHM AT 80 BPM. HAS LEFT HAND IV ACCESS #20G AND SALINE LOCKED. INTACT AND PATENT. ALL NEEDS ATTENDED. KEPT DRY AND COMFORTABLE. SAFETY PRECAUTIONS IN PLACED: BED LOW AND LOCKED, BED ALARM ON, SIDE RAILS UP X2, CALL LIGHT WITHIN REACH. MRSA SWAB ENDORSED TO AM RN.
[2021-12-07] MEDS: BLOOD SUGAR DIAGNOSTIC 1 EACH STRIP IN SCH ×2 (07:31→12:21)
--- NOTE | 2021-12-07 07:47 | NUR ---
RECEPTIONIST/TELEPHONE OPERATOR OPENING NOTES RECEIVED PATIENT LYING IN BED AWAKE, A/O X4. NO ACUTE DISTRESS NOTED. ON O2 AT 2 LPM VIA NASAL CANULA. BREATHING EVEN AND UNLABORED. PAIN IN LEFT SHOULDER AND CHEST. ON TELE MONITORING WITH A CURRENT READING SINUS RHYTHM AT 71 BPM. HAS LEFT HAND IV ACCESS #20G AND SALINE LOCKED. INTACT AND PATENT. SAFETY PRECAUTIONS IN PLACED: BED LOW AND LOCKED, BED ALARM ON, SIDE RAILS UP X2, CALL LIGHT WITHIN REACH. WILL CONTINUE TO MONITOR PATIENT.
[2021-12-07 08:00] VITALS: BP 167/85
[2021-12-07] MEDS: glyBURIDE/METFORMIN 5-500 MG 1 EACH TABLET PO SCH ×2 (08:00→17:13)
[2021-12-07] MEDS: ASPIRIN EC 81 MG TABLET.DR PO SCH (08:29)
[2021-12-07] MEDS: SERTRALINE HCL 50 MG TABLET PO SCH (08:29)
[2021-12-07] MEDS: GEMFIBROZIL 600 MG TABLET PO SCH ×2 (08:29→16:44)
[2021-12-07] MEDS: GABAPENTIN 300 MG CAPSULE PO SCH ×2 (08:30→16:44)
[2021-12-07] MEDS: CARBIDOPA/LEVODOPA 25/100 MG 1 UDTAB PO SCH ×3 (08:30→16:44)
[2021-12-07] MEDS: MEMANTINE HCL 5 MG TABLET PO SCH (08:30)
[2021-12-07] MEDS: FERROUS SULFATE (325 MG) 325 MG/TAB TABLET PO SCH (08:30)
[2021-12-07] MEDS: PANTOPRAZOLE 40 MG TABLET.DR PO SCH (08:30)
[2021-12-07] MEDS: AMLODIPINE BESYLATE 10 MG TABLET PO SCH (08:31)
[2021-12-07] MEDS: TOLTERODINE 2 MG CAP.SR PO SCH (08:32)
[2021-12-07] MEDS: ENOXAPARIN SODIUM 60 MG/0.6 ML DISP.SYRIN SQ SCH ×2 (08:38→21:29)
[2021-12-07] MEDS: TICAGRELOR 90 MG TABLET PO SCH ×2 (09:20→21:31)
[2021-12-07] MEDS: CARVEDILOL 12.5 MG TABLET PO SCH ×2 (09:21→16:40)
[2021-12-07] MEDS ORDERED: METOPROLOL TARTRATE 50 MG TABLET PO STA (10:10)
--- NOTE | 2021-12-07 11:10 | NUR ---
NUCLEAR PHARMACIST NOTES PATIENT HR 57-[address]GIO (LOUANN) OK NOT TO ADMINISTER. IF NEEDED WILL ADMINISTER BEFORE CTCA
[2021-12-07] MEDS ORDERED: CT SWABBABLE VALVE TRANS SET 1 EA INFUS.SET MC ONE (11:29)
[2021-12-07] MEDS ORDERED: IOHEXOL-350 100 ML VIAL IV ONE (11:29)
[2021-12-07] MEDS ORDERED: IV NS 0.9% 250 ML IV ONE (11:30)
[2021-12-07] MEDS ORDERED: NITROGLYCERIN 0.4 MG/TAB BOTTLE ONE (11:37)
[2021-12-07] MEDS ORDERED: METOPROLOL TARTRATE INJ 5 MG/5 ML AMPUL ONE (11:37)
[2021-12-07 12:00] VITALS: BP 153/69
--- NOTE | 2021-12-07 12:45 | NUR ---
TRAINMAN NOTES LAB CALLED REGARDING TROPONIN LEVEL. STILL HIGH 224.8 BUT TRENDING DOWN. MD ON THE FLOOR; MADE AWARE. WILL CONTINUE TO MONITOR PATIENT.
[2021-12-07] MEDS ORDERED: *INSULIN REGULAR(HUMULIN R)HUM 100 UNIT/ML VIAL SQ PRN (13:00)
[2021-12-07] MEDS: HYDROCODONE/APAP 5/325MG TABLET PO PRN ×2 (13:42→23:41)
[2021-12-07] MEDS: BLOOD SUGAR DIAGNOSTIC 1 EACH STRIP VI SCH ×2 (16:46→21:38)
--- NOTE | 2021-12-07 16:48 | NUR ---
TESTER FOOD PRODUCTS NOTES 1700 METOPROLOL NON-ADMINISTERED. HR 56 CHARGE NURSE AWARE
[2021-12-07] MEDS ORDERED: CILOSTAZOL 100 MG TABLET PO SCH (18:00)
[2021-12-07] MEDS ORDERED: ATORVASTATIN 10 MG TABLET PO SCH (18:00)
--- NOTE | 2021-12-07 18:37 | NUR ---
X RAY ELECTRONICS WIREMAN CLOSING NOTES PATIENT REMAINS IN BED AWAKE, A/O X4. NO ACUTE DISTRESS NOTED AT THIS TIME. ON ROOM AIR; BREATHING EVEN AND UNLABORED. PAIN IN LEFT SHOULDER AND CHEST REMAINS BUT NOT BAD. ON TELE MONITORING WITH A CURRENT READING SINUS CHHAYA 59. HAS LEFT HAND IV ACCESS #20G AND SALINE LOCKED. INTACT AND PATENT. ALL NEEDS ATTENDED DURING THE DAY. SAFETY PRECAUTIONS IN PLACED: BED LOW AND LOCKED, BED ALARM ON, SIDE RAILS UP X2, CALL LIGHT WITHIN REACH. WILL ENDORSE TO [facility] KAY STITCHER NURSE FOR JUNE.
--- NOTE | 2021-12-07 19:35 | NUR ---
RN NOTES RECEIVED PATIENT AWAKE ON BED, A/OX4, AMBULATORY, SR ON TELE MONITOR HR-68, DENIES PAIN, NO SOB, BED IN LOCKED POSITION, CALL LIGHT WITHIN REACH, SIDERAILSUPX2. WILL CONTINUE TO MONITOR
[2021-12-07 20:00] VITALS: BP 137/58
[2021-12-07] MEDS ORDERED: CARVEDILOL 6.25 MG TABLET PO SCH (22:00)
[2021-12-07] MEDS ORDERED: INSULIN GLARGINE, 100 UNIT/ML CARTRIDGE SQ SCH (22:00)
[2021-12-08] VITALS: BP_SYST 136; BP_SYST 137; BP_DIAS 55
[2021-12-08 04:00] VITALS: BP 158/60
[2021-12-08 06:11] LABS: CALCIUM, SERUM 8.7 mg/dL (8.5-10.1); CREATININE 1.1 mg/dL (0.6-1.3); MAGNESIUM 1.8 mg/dL (1.8-2.4); PHOSPHORUS 5.6 mg/dL (2.5-4.9); POTASSIUM 4.1 mmol/L (3.5-5.1)
--- NOTE | 2021-12-08 06:36 | NUR ---
RN NOTES AWAKE, MORNING CARE RENDERED,DENIES PAIN, NO SOB, CALL LIGHT WITHIN REACH, SIDERAILSUPX2, PT. NEEDS ATTENDED
[2021-12-08 06:37] LABS: BASOPHILS # (AUTO) 0.1 K/uL (0.0-0.2); BASOPHILS % (AUTO) 0.9 % (0.0-2.0); EOSINOPHILS % (AUTO) 5.9 % (0.0-6.0); HEMATOCRIT 30 % (33-45); HEMOGLOBIN 10.4 g/dL (11.5-14.8); LYMPHOCYTES # (AUTO) 2.3 K/uL (0.8-4.8); LYMPHOCYTES % (AUTO) 30.5 % (20.0-44.0); MEAN CORPUSCULAR HGB CONC 35 g/dl (31.0-36.0); MEAN CORPUSCULAR VOLUME 85 fL (82-100); MONOCYTES # (AUTO) 0.8 K/uL (0.1-1.30); MONOCYTES % (AUTO) 10.7 % (2.0-12.0); PLATELET COUNT (AUTO) 395 K/uL (150-450); RED BLOOD CELL COUNT(AUTO) 3.57 MIL/uL (4.0-5.2); WHITE BLOOD COUNT (AUTO) 7.7 K/uL (4.3-11.0)
[2021-12-08] MEDS: BLOOD SUGAR DIAGNOSTIC 1 EACH STRIP VI SCH ×2 (06:55→12:00)
--- NOTE | 2021-12-08 07:30 | NUR ---
RIVETER HELPER OPENING NOTES RECEIVED PATIENT IN BED AWAKE, A/OX4. ON RA WITH NO S/SX OF DISTRESS NOTED. NO PAIN VERBALIZED AT THIS TIME. ON TELE MONITOR WITH A CURRENT READING SINUS RHYTHM 64 BPM. HAS LEFT HAND IV ACCESS #20G AND SALINE LOCKED. INTACT AND PATENT. SAFETY PRECAUTIONS IN PLACED: BED LOW AND LOCKED, BED ALARM ON, SIDE RAILS UP X2, CALL LIGHT WITHIN REACH. WILL CONTINUE TO MONITOR PATIENT.
[2021-12-08 08:00] VITALS: BP 170/60
[2021-12-08] MEDS: glyBURIDE/METFORMIN 5-500 MG 1 EACH TABLET PO SCH (08:00)
[2021-12-08] MEDS: ASPIRIN EC 81 MG TABLET.DR PO SCH (08:29)
[2021-12-08] MEDS: AMLODIPINE BESYLATE 10 MG TABLET PO SCH (08:30)
[2021-12-08] MEDS: PANTOPRAZOLE 40 MG TABLET.DR PO SCH (08:30)
[2021-12-08] MEDS: SERTRALINE HCL 50 MG TABLET PO SCH (08:30)
[2021-12-08] MEDS: GEMFIBROZIL 600 MG TABLET PO SCH (08:30)
[2021-12-08 08:31] VITALS: BP 170/60
[2021-12-08] MEDS: CARVEDILOL 12.5 MG TABLET PO SCH (08:31)
[2021-12-08] MEDS: CARBIDOPA/LEVODOPA 25/100 MG 1 UDTAB PO SCH (08:31)
[2021-12-08] MEDS: FERROUS SULFATE (325 MG) 325 MG/TAB TABLET PO SCH (08:31)
[2021-12-08] MEDS: MEMANTINE HCL 5 MG TABLET PO SCH (08:31)
[2021-12-08] MEDS: GABAPENTIN 300 MG CAPSULE PO SCH (08:31)
[2021-12-08] MEDS: TICAGRELOR 90 MG TABLET PO SCH (08:34)
[2021-12-08] MEDS: TOLTERODINE 2 MG CAP.SR PO SCH (08:41)
[2021-12-08] MEDS ORDERED: VALSARTAN 80 MG TABLET PO SCH (09:00)
[2021-12-08] MEDS ORDERED: CARV12.52 PO (10:34)
--- NOTE | 2021-12-08 12:00 | NUR ---
RN NOTES PATIENT REFUSED ACCUCHECK D/T DISCHARGE ORDER AND WAITING FOR RIVET TOSSER
--- NOTE | 2021-12-08 12:45 | NUR ---
RUSSIAN HISTORY PROFESSOR NOTES PATIENT MEDICALLY STABLE FOR DISCHARGE. VSS. PATIENT WAS EDUCATED ON DISCHARGE INSTRUCTIONS. EXIT CARE PACKET WAS PROVIDED. PATIENT WAS ABLE TO VERBALIZE UNDERSTANDING. ALL BELONGINGS ACCOUNTED FOR AND DOCUMENTS SIGNED. IV ACCESS AND ID BAND REMOVED. PATIENT LEFT FACILITY VIA PRIVATE CAR ACCOMPANIED BY FAMILY MEMBER.
== END 2021-12-08 12:30 | disposition home or self-care (01) | DRG 190 ==
LOC: ER 21:41 → TELE 12-07 00:30
PROVIDERS: ADMIT Student in an Organized Health Care Education/Training Program; ATTEND Student in an Organized Health Care Education/Training Program
DX: I25.10 Atherosclerotic heart disease of native coronary artery without angina pectoris (principal); I21.4 Non-ST elevation (NSTEMI) myocardial infarction; I22.2 Subsequent non-ST elevation (NSTEMI) myocardial infarction; E11.65 Type 2 diabetes mellitus with hyperglycemia; I50.9 Heart failure, unspecified; I11.0 Hypertensive heart disease with heart failure; E86.0 Dehydration; F32.A Depression, unspecified; I70.0 Atherosclerosis of aorta; Z79.4 Long term (current) use of insulin; Z79.82 Long term (current) use of aspirin; Z79.84 Long term (current) use of oral hypoglycemic drugs; Z98.61 Coronary angioplasty status; F03.90 Unspecified dementia, unspecified severity, without behavioral disturbance, psychotic disturbance, mood disturbance, and anxiety; F17.200 Nicotine dependence, unspecified, uncomplicated; Z79.899 Other long term (current) drug therapy; Z83.3 Family history of diabetes mellitus
CPT/HCPCS: 36415; 71045-TC; 75574; 80048-TC; 82962-TC; 83735-TC; 83880; 84100-TC; 84484-TC; 85025-TC; 85730-TC; 87081-TC; C9803; G0378; J1650; J1815; J2270; J3490; J7050; Q9967

== ENCOUNTER 2022-06-02 09:22 | Inpatient (IN) | payer OTHER ==
[~2022-06-02] VITALS: Ht 167.6 cm; Wt 69.9 kg
[~2022-06-02 09:22] MED LIST changes: +CARV12.52 PO; -CARV6.252 PO
--- NOTE | 2022-06-02 09:32 | NUR ---
[id number] C/O ABDOMINAL PAIN RADIATES TO THE BACK P/S 10/10, RETAINING URINE SINCE LAST NIGHT. PT ATTACHED TO MONITOR, BLOOD PRESSURE ELEVATED, MD AWARE. PT IS A&OX4. AWAITING MD ORDERS.
--- NOTE | 2022-06-02 09:46 | NUR ---
16FR DASH IN PLACE, 1100 URINE OUTPUT, URINE IS PALE YELLOW AND CLEAR. URINE COLLECTED AND SENT TO LAB.
--- NOTE | 2022-06-02 09:47 | NUR ---
PT STATED THAT ONCE DASH WAS PLACED SHE FELT RELIEVED FROM THE PRESSURE BUT STILL HAS A 9/20 PAIN AND REQUESTING PAIN MD RAAD AWARE.
--- NOTE | 2022-06-02 09:51 | NUR ---
IV ESTBALIHSED L AC 20G. LABS DRAWN AND COLLECTE DTA BEDSIDE.
[2022-06-02] MEDS ORDERED: MORPHINE SULFATE INJ 4 MG/ML DISP.SYRIN ONE (09:53)
[2022-06-02] MEDS ORDERED: MORPHINE SULFATE INJ 2 MG/ML DISP.SYRIN IV ONE (10:00)
[2022-06-02 10:09] LABS: BASOPHILS # (AUTO) 0.1 K/uL (0.0-0.2); BASOPHILS % (AUTO) 0.8 % (0.0-2.0); EOSINOPHILS % (AUTO) 2.9 % (0.0-6.0); HEMATOCRIT 34 % (33-45); HEMOGLOBIN 11.6 g/dL (11.5-14.8); LYMPHOCYTES # (AUTO) 1.3 K/uL (0.8-4.8); MEAN CORPUSCULAR HGB CONC 34 g/dl (31.0-36.0); MEAN CORPUSCULAR VOLUME 87 fL (82-100); MONOCYTES # (AUTO) 0.7 K/uL (0.1-1.30); MONOCYTES % (AUTO) 5.9 % (2.0-12.0); NEUTROPHILS # (AUTO) 9.6 K/uL (1.8-8.9); NEUTROPHILS % (AUTO) 79.4 % (43.0-81.0); PLATELET COUNT (AUTO) 426 K/uL (150-450); RED BLOOD CELL COUNT(AUTO) 3.95 MIL/uL (4.0-5.2)
[2022-06-02 10:30] LABS: ALBUMIN 3.6 g/dL (3.4-5.0); BILIRUBIN,DIRECT 0.1 mg/dL (0.0-0.2); BILIRUBIN,TOTAL 0.3 mg/dL (0.2-1.0); CALCIUM, SERUM 8.9 mg/dL (8.5-10.1); CREATININE 1.3 mg/dL (0.6-1.3); POTASSIUM 4.8 mmol/L (3.5-5.1); TOTAL PROTEIN, SERUM 7.2 g/dL (6.4-8.2)
--- NOTE | 2022-06-02 10:30 | NUR ---
MOVE SHEET SUBMITTED.
--- NOTE | 2022-06-02 11:29 | NUR ---
URINE COLLECTED AND SENT TO LAB
--- NOTE | 2022-06-02 11:35 | NUR ---
COVID SWAB DONE AND SENT TO LAB
[2022-06-02 12:02] LABS: BILIRUBIN,URINE NEGATIVE (NEGATIVE); COLOR,URINE YELLOW (YELLOW); LEUKOCYTE ESTERASE ,URINE NEGATIVE (NEGATIVE); NITRITE, URINE NEGATIVE (NEGATIVE); PH,URINE 6.5 (5.0-8.0); PROTEIN,URINE 100 mg/dl (NEGATIVE); UGLUCOSE >=1000 mg/dL (NEGATIVE); UROBILINOGEN,URINE 0.2 EU/dL (0.2)
[2022-06-02 12:15] LABS: BACTERIA,URINE Few /HPF (None Seen); RBC,URINE 21-50 /HPF (0-2); SQUAMOUS EPITHELIAL CELL,UR Few /HPF (None Seen); WBC,URINE 0-2 /HPF (0-3)
[2022-06-02] MEDS ORDERED: KETOROLAC TROMETHAMINE INJ 30 MG/ML VIAL IV ONE (12:30)
[2022-06-02] MEDS ORDERED: ONDANSETRON HCL/PF 4 MG/2 ML VIAL IVP PRN (13:30)
[2022-06-02] MEDS ORDERED: hydrALAZINE HCL IV 20 MG VIAL IV PRN (13:30)
[2022-06-02] MEDS ORDERED: BACLOFEN (10 MG) 10 MG TABLET PO PRN (13:30)
[2022-06-02] MEDS ORDERED: ACETAMINOPHEN 325 MG TABLET PO PRN (13:30)
[2022-06-02] MEDS ORDERED: LORAZEPAM 1 MG TABLET PO PRN (13:30)
[2022-06-02] MEDS ORDERED: MAG HYDROX/AL HYDROX/SIMETH 30 ML UDC PO PRN (13:30)
[2022-06-02] MEDS ORDERED: MAGNESIUM HYDROXIDE 30 ML UDC PO PRN (13:30)
[2022-06-02] MEDS ORDERED: DEXTROSE 50%-WATER 50 ML DISP.SYRIN IV PRN (13:30)
--- NOTE | 2022-06-02 14:00 | NUR ---
REPORT GIVEN TO MARSHA FOR JUNE
[2022-06-02] MEDS: MORPHINE SULFATE INJ 2 MG/ML DISP.SYRIN IV PRN ×2 (15:07→22:30)
[2022-06-02] MEDS: IV NS 0.9% 1,000 ML IV SCH (15:13)
--- NOTE | 2022-06-02 15:30 | NUR ---
MS BULLET SLUGS INSPECTOR NOTES RECIEVED PATIENT FROM ER ,A/O X4 , MONGOLIAN SPEAKING BUT SPEAKS ROMANIAN , ON ROOM AIR AND TOLERATED WELL , STARTED WITH NS @ 75ML /HR WITH IV LINE ON LAC #20 G , PATENT AND INTACT , BODY ASSESSMENT DONE AND SKIN IS INTACT , C/O OF PAIN AND DISCOMFORT AND 9/10 AND MORPHINE GIVEN ORDERED , NO SOB OR DISTRESS NOTED AT THIS TIME , KEPT COMFORTABLE OT BED , ADMISSION ASSESSMENT DONE , SR UP X 2 , BED AT LOWEST POSITION , WITH F/C NOTED DUE TO RETENTION AND DRAINING WITH YELLOW COLORED URINE , WILL CONTINUE TO MONITOR
[2022-06-02 16:00] VITALS: BP 137/61
[2022-06-02] MEDS: BLOOD SUGAR DIAGNOSTIC 1 EACH STRIP VI SCH ×2 (17:43→21:34)
[2022-06-02] MEDS: CARBIDOPA/LEVODOPA 25/100 MG 1 UDTAB PO SCH (17:46)
[2022-06-02] MEDS: CARVEDILOL 12.5 MG TABLET PO SCH (17:46)
[2022-06-02] MEDS: GABAPENTIN 300 MG CAPSULE PO SCH (17:46)
[2022-06-02] MEDS: CILOSTAZOL 100 MG TABLET PO SCH (17:47)
[2022-06-02] MEDS: TICAGRELOR 90 MG TABLET PO SCH (17:58)
[2022-06-02] MEDS: *INSULIN REGULAR(HUMULIN R)HUM 100 UNIT/ML VIAL SQ PRN (18:01)
--- NOTE | 2022-06-02 19:12 | NUR ---
MS RN CLOSING NOTES PATIENT ADMIITED FROM ER ,A/O X4 , SERBIAN SPEAKING BUT SPEAKS MACEDONIAN , ON ROOM AIR AND TOLERATED WELL , ON GOING NS @ 75ML /HR WITH IV LINE ON LAC #20 G , PATENT AND INTACT , , C/O OF PAIN AND DISCOMFORT AND 9/10 AND MORPHINE GIVEN ORDERED , NO SOB OR DISTRESS NOTED AT THIS TIME , KEPT COMFORTABLE OT BED , ALL DUE MEDS GIVEN ORDERED, BLOOD SUGAR WAS CHECKED AND INSULIN GIVEN ORDERED , SR UP X 2 , BED AT LOWEST POSITION , WITH F/C NOTED DUE TO RETENTION AND DRAINING WITH YELLOW COLORED URINE DRAINAGE 0F 800 ML , ENDORSED TO NEXT SHIFT
[2022-06-02 20:00] VITALS: BP 140/70
[2022-06-02] MEDS: Z GUARD REMEDY 4 OZ OINT TP PRN (21:31)
[2022-06-02] MEDS ORDERED: ZOLPIDEM TARTRATE 5 MG TABLET PO PRN (22:00)
[2022-06-03] MEDS: IV NS 0.9% 1,000 ML IV SCH ×2 (03:01→15:25)
--- NOTE | 2022-06-03 05:49 | NUR ---
RN CLOSING NOTES: ALERT AND ORIENTATED X4 MEDICATED X1 WITH MORPHINE FOR ABD PAIN AND EFFECTIVE DASH DRAINAGE CLEAR YELLOW MAKES HER NEEDS KNOWN SLEPT THRU MOST OF THE NIGHT NO BM OR NAUSES THIS 12 HOURS
[2022-06-03] MEDS: BLOOD SUGAR DIAGNOSTIC 1 EACH STRIP VI SCH ×3 (06:14→16:27)
[2022-06-03] MEDS: Z GUARD REMEDY 4 OZ OINT TP PRN (06:19)
[2022-06-03] MEDS: INSULIN REGULAR, HUMAN 100 UNIT/ML 3 ML VIAL SQ PRN ×2 (06:23→16:44)
[2022-06-03 06:51] LABS: BASOPHILS # (AUTO) 0.1 K/uL (0.0-0.2); BASOPHILS % (AUTO) 0.7 % (0.0-2.0); EOSINOPHILS % (AUTO) 4.5 % (0.0-6.0); HEMATOCRIT 30 % (33-45); MEAN CORPUSCULAR HGB CONC 34 g/dl (31.0-36.0); MEAN CORPUSCULAR VOLUME 87 fL (82-100); MONOCYTES # (AUTO) 0.8 K/uL (0.1-1.30); MONOCYTES % (AUTO) 8.1 % (2.0-12.0); NEUTROPHILS # (AUTO) 6.2 K/uL (1.8-8.9); NEUTROPHILS % (AUTO) 65.7 % (43.0-81.0); PLATELET COUNT (AUTO) 368 K/uL (150-450); WHITE BLOOD COUNT (AUTO) 9.4 K/uL (4.3-11.0)
[2022-06-03 06:59] LABS: CALCIUM, SERUM 8.5 mg/dL (8.5-10.1); CREATININE 1.3 mg/dL (0.6-1.3); MAGNESIUM 1.8 mg/dL (1.8-2.4); PHOSPHORUS 4.6 mg/dL (2.5-4.9); POTASSIUM 4.1 mmol/L (3.5-5.1)
[2022-06-03] MEDS ORDERED: PANTOPRAZOLE 40 MG TABLET.DR PO SCH (07:30)
--- NOTE | 2022-06-03 08:04 | NUR ---
RN OPENING NOTE PATIENT RECEIVED IN BED, AO X 4. ABLE TO RESPONDS ALL STIMULI. IN NO ACUTE DISTRESS NOTED. RESPIRATORY EVEN AND UNLABORED IN ROOM AIR. SKIN IS WARM TO TOUCH, KEEP CLEAN/DRY. DASH CATHETER CONNECTING URINE BAG. KEPT ELEVATED HOB FOR ENSURE AIRWAY AND ASPIRATION PRECAUTION, ALSO LOWEST POSITION OF THE BED, S/R UP X 2, BED ALARM IS ON AT ALL THE TIMES. ALL SAFETY PRECAUTION APPLIED. CALL LIGHT WITHIN REACH, WILL CONTINUE TO MONITOR.
[2022-06-03] MEDS: CARBIDOPA/LEVODOPA 25/100 MG 1 UDTAB PO SCH ×3 (08:20→16:26)
[2022-06-03] MEDS: GABAPENTIN 300 MG CAPSULE PO SCH ×2 (08:20→16:26)
[2022-06-03] MEDS: CARVEDILOL 12.5 MG TABLET PO SCH ×2 (08:22→16:27)
[2022-06-03] MEDS: TICAGRELOR 90 MG TABLET PO SCH ×2 (08:26→16:27)
[2022-06-03] MEDS ORDERED: AMLODIPINE BESYLATE 10 MG TABLET PO SCH (09:00)
[2022-06-03] MEDS ORDERED: LOSARTAN POTASSIUM 50 MG TABLET PO SCH (09:00)
[2022-06-03] MEDS ORDERED: SERTRALINE HCL 50 MG TABLET PO SCH (09:00)
[2022-06-03] MEDS ORDERED: ASPIRIN EC 81 MG TABLET.DR PO SCH (09:00)
[2022-06-03] MEDS ORDERED: MEMANTINE HCL 5 MG TABLET PO SCH (09:00)
[2022-06-03] MEDS ORDERED: FERROUS SULFATE (325 MG) 325 MG/TAB TABLET PO SCH (09:00)
[2022-06-03] MEDS: *INSULIN REGULAR(HUMULIN R)HUM 100 UNIT/ML VIAL SQ PRN (11:44)
[2022-06-03] MEDS: MORPHINE SULFATE INJ 2 MG/ML DISP.SYRIN IV PRN (15:25)
[2022-06-03 16:16] VITALS: BP 160/60
[2022-06-03 16:27] VITALS: BP 176/62
[2022-06-03] MEDS: CILOSTAZOL 100 MG TABLET PO SCH (17:21)
--- NOTE | 2022-06-03 18:48 | NUR ---
PATIENT D/C TO HOME, GIVEN DISCHARGE INSTRUCTION INCLUDE FOLLOW UP PRIMARY PHYSICIAN IN ONE WEEK. PATIENT DENIES PAIN EXCEPT URINATE, STATED "PAIN 5/10 DURING URINATING." ENCOURAGED PATIENT TO ORAL FLUID INTAKE TOLERATED. PATIENT LEFT FACILITY ACCOMPANIED BY STAFF TO THE PRIVATE CAR. IN STABLE CONDITION. IV LINE REMOVED BEFORE PATIENT LEAVE.
== END 2022-06-03 18:42 | disposition home or self-care (01) | DRG 465 ==
LOC: ER 09:28 → TRANSITION 13:09 → MED 13:42
PROVIDERS: ADMIT Internal Medicine; ATTEND Internal Medicine
DX: N20.0 Calculus of kidney (principal); E11.40 Type 2 diabetes mellitus with diabetic neuropathy, unspecified; F02.80 Dementia in other diseases classified elsewhere, unspecified severity, without behavioral disturbance, psychotic disturbance, mood disturbance, and anxiety; E87.1 Hypo-osmolality and hyponatremia; G20 Parkinson's disease; R33.8 Other retention of urine; Z20.822 Contact with and (suspected) exposure to COVID-19; I10 Essential (primary) hypertension; Z79.4 Long term (current) use of insulin; Z79.84 Long term (current) use of oral hypoglycemic drugs; Z79.82 Long term (current) use of aspirin; Z79.899 Other long term (current) drug therapy; N39.0 Urinary tract infection, site not specified; I25.10 Atherosclerotic heart disease of native coronary artery without angina pectoris; F17.200 Nicotine dependence, unspecified, uncomplicated; Z79.02 Long term (current) use of antithrombotics/antiplatelets; Z83.3 Family history of diabetes mellitus
CPT/HCPCS: 36415; 80048-TC; 80076-TC; 81001; 82962-TC; 83690-TC; 83735-TC; 84100-TC; 85025-TC; 87081-TC; C9803; G0378; J1815; J2270; J7030

== ENCOUNTER 2022-09-28 09:56 | Inpatient (IN) | payer OTHER ==
[~2022-09-28] VITALS: Ht 167.6 cm; Wt 73.0 kg
--- NOTE | 2022-09-28 10:04 | NUR ---
PT ON BED IN ROOM ER #4, A/Ox4, C/O CHEST PAIN 05/05, PLACE ON 2L O2 N/C FOR COMFPORT, BP STABLE, IV SITE . LEFT AC G 18 CLEAN M, DRY AND INTACT, CONTINUE TO MONITOR
--- NOTE | 2022-09-28 10:40 | NUR ---
TECH AT BEDSIDE FOR EKG
--- NOTE | 2022-09-28 10:52 | NUR ---
PT VOIDING PER BED HOLLOWAY
[2022-09-28 10:57] LABS: ALANINE AMINOTRANSFERASE 19 U/L (12-78); ALBUMIN 2.6 g/dL (3.4-5.0); ALKALINE PHOSPHATASE 70 U/L (46-116); ASPARTATE AMINOTRANSFERASE 16 U/L (15-37); BILIRUBIN,DIRECT 0.1 mg/dL (0.0-0.2); BILIRUBIN,TOTAL 0.1 mg/dL (0.2-1.0); CALCIUM, SERUM 8.8 mg/dL (8.5-10.1); CARBON DIOXIDE 23 mmol/L (21-32); CHLORIDE 105 mmol/L (98-107); CREATININE 1.3 mg/dL (0.6-1.3); GLUCOSE 213 mg/dL (74-106); POTASSIUM 4.7 mmol/L (3.5-5.1); SODIUM SERUM 134 mmol/L (136-145); TOTAL PROTEIN, SERUM 6.3 g/dL (6.4-8.2); UREA NITROGEN, BLOOD 31 mg/dL (7-18)
--- NOTE | 2022-09-28 11:00 | NUR ---
PT RESTING IN BED, VSS STABLE . EKG DONE
[2022-09-28] MEDS ORDERED: KETOROLAC TROMETHAMINE 15 MG/ML VIAL ONE (11:51)
[2022-09-28] MEDS ORDERED: KETOROLAC TROMETHAMINE INJ 30 MG/ML VIAL IV ONE (12:00)
[2022-09-28] MEDS ORDERED: CEFTRIAXONE 1GM BAG (ER ONLY) 1 GM/50 ML PIGGYBACK IV ONE (12:00)
[2022-09-28] MEDS ORDERED: FUROSEMIDE 40 MG/4 ML VIAL IV ONE (12:00)
[2022-09-28] MEDS ORDERED: AZITHROMYCIN 500 MG in IV D5W 250 ML IV ONE (12:00)
--- NOTE | 2022-09-28 12:00 | NUR ---
RN NOTES PT SLEEPING, IV ABX INFUSING , CONTINUE TO MONITOR
[2022-09-28] MEDS ORDERED: FUROSEMIDE 40 MG/4 ML VIAL ONE (12:02)
--- NOTE | 2022-09-28 12:17 | NUR ---
DASH CATH INSERTED PER PT REQUEST, DR. LAW OWENS
[2022-09-28] MEDS ORDERED: ROSU10TA29 PO (12:50)
[2022-09-28 13:03] LABS: BASOPHILS # (AUTO) 0.1 K/uL (0.0-0.2); BASOPHILS % (AUTO) 0.7 % (0.0-2.0); EOSINOPHILS % (AUTO) 1.9 % (0.0-6.0); HEMATOCRIT 26 % (33-45); LYMPHOCYTES # (AUTO) 1.3 K/uL (0.8-4.8); LYMPHOCYTES % (AUTO) 14.4 % (20.0-44.0); MEAN CORPUSCULAR HGB CONC 33 g/dl (31.0-36.0); MEAN CORPUSCULAR VOLUME 85 fL (82-100); MONOCYTES # (AUTO) 0.6 K/uL (0.1-1.30); MONOCYTES % (AUTO) 6.9 % (2.0-12.0); NEUTROPHILS % (AUTO) 76.1 % (43.0-81.0); PLATELET COUNT (AUTO) 348 K/uL (150-450); RED BLOOD CELL COUNT(AUTO) 3.06 MIL/uL (4.0-5.2); WHITE BLOOD COUNT (AUTO) 9.3 K/uL (4.3-11.0)
[2022-09-28 13:08] LABS: HEMOGLOBIN 8.6 g/dL (11.5-14.8)
--- NOTE | 2022-09-28 13:10 | NUR ---
[facility] [phone] OPTION 2
--- NOTE | 2022-09-28 13:30 | NUR ---
DISCHARG INSTRUCTION GIVEN TO PT , VERBLISAZES UNDERSTANDING, PT LEFT THE ER TO HOME AMBULATORY , IN STABLE CONDITION, Addendum: 09/28/22 at 1354 by LENI DISRGARDING ABOVE CHARTING, CHARTED ON WRONG PT .
--- NOTE | 2022-09-28 14:04 | NUR ---
COVID SWAB COLLECTED AND SENT TO LAB
--- NOTE | 2022-09-28 14:27 | NUR ---
[facility] CALLED PANEL EDGE SEALER PAGED.
[2022-09-28] MEDS ORDERED: BACLOFEN (10 MG) 10 MG TABLET PO PRN (15:00)
[2022-09-28] MEDS ORDERED: MAGNESIUM HYDROXIDE 30 ML UDC PO PRN (15:30)
[2022-09-28] MEDS ORDERED: MAG HYDROX/AL HYDROX/SIMETH 30 ML UDC PO PRN (15:30)
[2022-09-28] MEDS ORDERED: DEXTROSE 50%-WATER 50 ML DISP.SYRIN IV PRN (15:30)
[2022-09-28] MEDS ORDERED: ZOLPIDEM TARTRATE 5 MG TABLET PO PRN (15:30)
[2022-09-28] MEDS ORDERED: Z GUARD REMEDY 4 OZ OINT TP PRN (15:30)
--- NOTE | 2022-09-28 15:35 | NUR ---
GOT ROOM 329-1 ADMITTING INFORMED.
--- NOTE | 2022-09-28 15:50 | NUR ---
REPORT GIVEN TO [facility]
--- NOTE | 2022-09-28 16:10 | NUR ---
PT TRANSFERRED TO 329-1 VIA [facility] ACLS PROTOCOL. WARM HANDOFF GIVEN TO RN ASSIGNED.
[2022-09-28] MEDS ORDERED: FUROSEMIDE 40 MG/4 ML VIAL IV SCH (17:00)
--- NOTE | 2022-09-28 17:00 | NUR ---
PERFORATOR OPERATOR OIL [place] FREIGHT SPECIALIST NOTE Patient arrived to 3 [facility] Med/Surg/Tele Unit, Room 329 via gurney from Emergency Dept. at 16:25 hours today (09/28/22). Jeferson presented as anxious and alert and oriented x 4, cooperative, and able to make needs known in Lao. First language fluent in Mohawk. Vital signs stable with systolic hypertension in 160s. Will be giving scheduled anti-hypertension medication soon. Tele monitor showing SR in the 60s HR. Patient well perfused, amvy-fn-bummi with positive pulses in all four extremities. Apical heart rate sounded steady at 60 bpm. Auscultated clear lung sounds throughout both lobes bilaterally. Auscultated active bowel sounds. Pt stated having LBM today and WNL. Patient has Fox catheter draining pale clear urine to gravity bag. Pt c/o intermittent pain 6 to 7 generalized throughout body with spasms. Will give baclofen PRN. Oriented patient to unit, room and bed controls and hospital safety protocals. Bed in lowest position, locked brakes and with two bedsiderails up at HOB, with amos light/medina within aris's reach. Will continue to monitor patient per MD POC.
[2022-09-28] MEDS: CILOSTAZOL 100 MG TABLET PO SCH (17:16)
[2022-09-28] MEDS: ONDANSETRON HCL/PF 4 MG/2 ML VIAL IVP PRN (17:16)
[2022-09-28] MEDS: ATORVASTATIN 40 MG TABLET PO SCH (17:17)
[2022-09-28] MEDS: GABAPENTIN 300 MG CAPSULE PO SCH (17:17)
[2022-09-28] MEDS: GEMFIBROZIL 600 MG TABLET PO SCH (17:18)
[2022-09-28] MEDS: CARVEDILOL 12.5 MG TABLET PO SCH (17:18)
[2022-09-28] MEDS: BLOOD SUGAR DIAGNOSTIC 1 EACH STRIP VI SCH ×2 (17:23→22:34)
[2022-09-28] MEDS: FUROSEMIDE 40 MG/4 ML VIAL IV SCH ×2 (17:23→20:55)
[2022-09-28] MEDS: ASPIRIN EC 81 MG TABLET.DR PO SCH (17:25)
[2022-09-28] MEDS: TICAGRELOR 90 MG TABLET PO SCH (17:28)
[2022-09-28] MEDS: ENOXAPARIN SODIUM 40 MG/0.4 ML DISP.SYRIN SQ SCH (17:29)
[2022-09-28] MEDS: INSULIN REGULAR, HUMAN 100 UNIT/ML 3 ML VIAL SQ PRN (17:32)
[2022-09-28 18:00] VITALS: BP 115/67
[2022-09-28] MEDS: ACETAMINOPHEN 325 MG TABLET PO PRN (18:38)
--- NOTE | 2022-09-28 19:00 | NUR ---
MANAGER ROOFING CLOSING NOTE Patient c/o pain increasing despite giving baclofen PO and tylenol PO medication PRN pain. Also c/o SOB despite O2 sat of 97% on RA and clear lung sounds and giving lasix IV push. Put on oxygen via nasal cannula @ 2 LPM. Reviewed use of call light with patient and maintained safety protocals. Gave all prescribed medications as ordered by MD. Will endorse to car shifter Larry BURR for JUNE.
--- NOTE | 2022-09-28 19:55 | NUR ---
Rn Opening Notes Received pt in bed, awake. AOx4, able to make needs known. On NC 2LPM and tolerating well. No SOB noted. No s/sx of respiratory distress noted. IV access in LAC #20G. IV is intact, patent, and flushing well. Safety precautions in place: bed in lowest, locked position, siderails upx2, and brakes on. Table and call light within reach. All needs met at this time.
[2022-09-28 20:00] VITALS: BP 126/57
--- NOTE | 2022-09-28 20:45 | NUR ---
RN NOTES Patient verbalized that " I do not feel well like when my blood sugar drops." Checked blood sugar and it was 42. Administered 4 orange juice cups, chocolate pudding, and an apple juice. Will reassess blood sugar in 15 minutes.
--- NOTE | 2022-09-28 20:59 | NUR ---
RN Note Reassessed blood sugar and it was 87. Provided patient with more snack and juices.
[2022-09-28] MEDS: *INSULIN REGULAR(HUMULIN R)HUM 100 UNIT/ML VIAL SQ PRN (22:34)
--- NOTE | 2022-09-29 00:34 | NUR ---
RN Notes Removed one vial of 40 mg/4 mL of furosemide. Pyxis in southeast corner would not open furosemide drawer so one vial of furosemide was removed from [place] pyxis. One vial of furosemide, 40 mg/4 mL, administered per MD order. VS Stable.
[2022-09-29] MEDS: FUROSEMIDE 40 MG/4 ML VIAL IV SCH (00:37)
[2022-09-29 04:29] VITALS: BP 129/61
[2022-09-29] MEDS: BLOOD SUGAR DIAGNOSTIC 1 EACH STRIP VI SCH ×4 (06:40→21:39)
[2022-09-29 06:41] LABS: BASOPHILS # (AUTO) 0.1 K/uL (0.0-0.2); BASOPHILS % (AUTO) 0.8 % (0.0-2.0); EOSINOPHILS % (AUTO) 2.9 % (0.0-6.0); HEMATOCRIT 27 % (33-45); HEMOGLOBIN 9.3 g/dL (11.5-14.8); LYMPHOCYTES # (AUTO) 1.9 K/uL (0.8-4.8); LYMPHOCYTES % (AUTO) 21.4 % (20.0-44.0); MEAN CORPUSCULAR HGB CONC 34 g/dl (31.0-36.0); MEAN CORPUSCULAR VOLUME 84 fL (82-100); MONOCYTES # (AUTO) 0.7 K/uL (0.1-1.30); MONOCYTES % (AUTO) 7.8 % (2.0-12.0); NEUTROPHILS # (AUTO) 5.9 K/uL (1.8-8.9); NEUTROPHILS % (AUTO) 67.1 % (43.0-81.0); PLATELET COUNT (AUTO) 384 K/uL (150-450); RED BLOOD CELL COUNT(AUTO) 3.26 MIL/uL (4.0-5.2); WHITE BLOOD COUNT (AUTO) 8.8 K/uL (4.3-11.0)
[2022-09-29] MEDS: INSULIN REGULAR, HUMAN 100 UNIT/ML 3 ML VIAL SQ PRN ×3 (06:41→17:15)
--- NOTE | 2022-09-29 07:00 | NUR ---
RN OPENING NOTE RECEIVED PT IN BED, ASLEEP, EASILY ABUSABLE, ALERT AND ORIENTED X 4. IV ACCESS LEFT AC, FLUSHES WELL. DASH CATHETER IN PLACE DRAINING YELLOW CLEAR URINE. SINUS RHYTHM ON EXTERNAL GROUNDSKEEPER SUPERVISOR. SAFETY MEASURES IMPLEMENTED, BED LOCKED AND IN LOWEST POSITION, WILL CONTINUE TO MONITOR.
[2022-09-29 07:04] LABS: ALBUMIN 2.7 g/dL (3.4-5.0); BILIRUBIN,TOTAL 0.2 mg/dL (0.2-1.0); CREATININE 1.6 mg/dL (0.6-1.3); MAGNESIUM 1.7 mg/dL (1.8-2.4); PHOSPHORUS 6.6 mg/dL (2.5-4.9); POTASSIUM 3.9 mmol/L (3.5-5.1); TOTAL PROTEIN, SERUM 6.6 g/dL (6.4-8.2)
--- NOTE | 2022-09-29 07:04 | NUR ---
Rn Closing Notes Pt in bed, asleep, awakens to verbal stimuli. AOx4, able to make needs known. On NC 2LPM and tolerating well. No SOB noted. No s/sx of respiratory distress noted. IV access in LAC #20G. IV is intact, patent, and flushing well. All orders carried out. All needs met. Pt kept clean and dry. Safety precautions in place: bed in lowest, locked position, siderails upx2, and brakes on. Table and call light within reach. Will endorse to oncoming shift for JUNE.
[2022-09-29 07:07] LABS: THYROID STIMULATING HORMONE 1.767 uIU/mL (0.358-3.74)
[2022-09-29 08:00] VITALS: BP 110/60
[2022-09-29] MEDS: SERTRALINE HCL 50 MG TABLET PO SCH (08:58)
[2022-09-29] MEDS: AMLODIPINE BESYLATE 10 MG TABLET PO SCH (08:59)
[2022-09-29] MEDS: MEMANTINE HCL 5 MG TABLET PO SCH (08:59)
[2022-09-29] MEDS: LOSARTAN POTASSIUM 50 MG TABLET PO SCH (09:00)
[2022-09-29] MEDS ORDERED: FERROUS SULFATE (325 MG) 325 MG/TAB TABLET PO SCH (09:00)
[2022-09-29] MEDS: ASPIRIN EC 81 MG TABLET.DR PO SCH (09:00)
[2022-09-29] MEDS: GEMFIBROZIL 600 MG TABLET PO SCH ×2 (09:00→16:18)
[2022-09-29] MEDS: GABAPENTIN 300 MG CAPSULE PO SCH ×2 (09:00→16:18)
[2022-09-29] MEDS: CARVEDILOL 12.5 MG TABLET PO SCH ×2 (09:01→16:18)
[2022-09-29] MEDS: METFORMIN PO SCH ×2 (09:03→16:20)
[2022-09-29] MEDS: GLYBURIDE PO SCH ×2 (09:03→16:20)
[2022-09-29] MEDS: TICAGRELOR 90 MG TABLET PO SCH ×2 (09:03→16:20)
[2022-09-29] MEDS: Magnesium 1GM/D5W 100ML PREMIX 100 ML IV SCH ×2 (09:53→10:47)
[2022-09-29] MEDS: POTASSIUM CHLORIDE 20 MEQ TAB.PRT.SR PO SCH (09:54)
[2022-09-29] MEDS: FUROSEMIDE 40 MG TABLET PO SCH (09:54)
[2022-09-29 12:00] VITALS: BP 174/60
[2022-09-29] MEDS: CEFTRIAXONE 1 G in IV D5W 50 ML IV SCH (12:25)
[2022-09-29] MEDS: HYDROCODONE/APAP 10/325MG TABLET PO PRN (12:50)
[2022-09-29] MEDS: AZITHROMYCIN 500 MG in IV D5W 250 ML IV SCH (12:54)
[2022-09-29] MEDS: ENOXAPARIN SODIUM 40 MG/0.4 ML DISP.SYRIN SQ SCH (14:48)
[2022-09-29] MEDS: ONDANSETRON HCL/PF 4 MG/2 ML VIAL IVP PRN ×2 (15:31→21:40)
[2022-09-29 16:00] VITALS: BP_SYST 107; BP_SYST 129; BP_DIAS 47; BP_DIAS 69
[2022-09-29] MEDS: CILOSTAZOL 100 MG TABLET PO SCH (17:23)
[2022-09-29] MEDS: ATORVASTATIN 40 MG TABLET PO SCH (17:23)
--- NOTE | 2022-09-29 18:45 | NUR ---
RN CLOSING NOTE PATIENT IN BED, AWAKE, ALERT AND ORIENTED X 4. IV ACCESS LEFT AC, FLUSHES WELL. SINUS RHYTHM ON EXTERNAL FACILITIES ENGINEERING MANAGER. DASH CATHETER IN PLACE DRAINED 1200CC OF URINE. SAFETY MEASURES IMPLEMENTED, BED LOCKED AND IN LOWEST POSITION, WILL ENDORSE TO THE YOUTUBER NURSE.
--- NOTE | 2022-09-29 19:37 | NUR ---
MS RN NOTES RECEIVED LAYING ON BED OH HIGH FOWLERS POSITION,NO SOB,O2 IN USED AT 2L/NC TO KEEP O2 SAT ABOVE 90%.WITH DASH CATH IN PLACE DRAINS YELLOWISH OUTPUT.ABLE TO AMBULATE WITH ASSIST.FALL RISK,BED ALARM TRIGGERED,BED ON LOWEST POSITION AND LOCKED,CALL LIGHT IN REACH,NEEDS ANTICIPATED.
[2022-09-29 20:00] VITALS: BP 123/52
--- NOTE | 2022-09-29 21:40 | NUR ---
MS RN NOTES VOMITED PROBABLY FROM DRINKING SODA,MEDICATED WITH ZOFRAN 4MG IV ORDERED PRN FOR N/V.
--- NOTE | 2022-09-29 21:45 | NUR ---
MS RN NOTES ACCU-CHECK BLOOD SUGAR CHECK 216, COVERED WITH HUMULIN R 3 UNITS INSTEAD OF 4 UNITS PER PATIENT REQUEST,ALONG WITH LANTUS 60 UNITS SCHEDULED BUT PATIENTS WANTS ONLY 20 UNITS.COMMENTED HER SUGAR EASILY GOES DOWN,GIVEN SQ ON RIGHT UPPER ABDOMEN
[2022-09-29] MEDS: INSULIN GLARGINE, 100 UNIT/ML CARTRIDGE SQ SCH (21:48)
[2022-09-29] MEDS: *INSULIN REGULAR(HUMULIN R)HUM 100 UNIT/ML VIAL SQ PRN (21:48)
--- NOTE | 2022-09-30 | NUR ---
MS RN NOTES ASLEEP THIS TIME,KEPT WARM AND COMFORTABLE.
--- NOTE | 2022-09-30 05:50 | NUR ---
MS RN NOTES ACCUCHECK BLOOD SUGAR CHECK 71,ASYMPTOMATIC FOR HYPOGLYCEMIA,ORANGE JUICE 1 CUP WITH ADDED SUGAR GIVEN PER PATIENT REQUEST.
[2022-09-30] MEDS: BLOOD SUGAR DIAGNOSTIC 1 EACH STRIP VI SCH ×4 (05:51→21:54)
--- NOTE | 2022-09-30 06:15 | NUR ---
MS RN NOTES FAIRLY RESTED AT NIGHT,NO FALL,NO INJURY SALINE LOCK REMAINS PATIENT.STRICT I/O OBSERVED.NO FALL,NO INJURY,IN NO ACUTE DISTRESS.
[2022-09-30 07:00] VITALS: BP 152/57
[2022-09-30 07:20] LABS: ALBUMIN 2.7 g/dL (3.4-5.0); BILIRUBIN,TOTAL 0.2 mg/dL (0.2-1.0); CREATININE 2.1 mg/dL (0.6-1.3); MAGNESIUM 2.3 mg/dL (1.8-2.4); PHOSPHORUS 6.8 mg/dL (2.5-4.9); POTASSIUM 4.2 mmol/L (3.5-5.1); TOTAL PROTEIN, SERUM 6.5 g/dL (6.4-8.2)
--- NOTE | 2022-09-30 07:46 | NUR ---
RN OPENING NOTE PATIENT AWAKE IN BED RESTING, A/O X 4. NO S/S OF PAIN NOTED AT THIS TIME. ON 2L OXYGEN VIA NC, NO SHORTNESS OF BREATH, NO DISTRESS NOTED. IV ACCESS LAC #18G, INTACT, PATENT AND FLUSHING WELL. PATIENT HAVE A DASH CATHETER IN PLACE AND DRAINING WELL. FALL AND SAFETY MEASURES IN PLACE, BED ALARM ON, BED IN LOW AND LOCK POSITION, CALL LIGHT AND TABLE WITHIN EASY REACH, SIDE RAILS UP X2. WILL CONTINUE TO MONITOR.
[2022-09-30] MEDS: HYDROCODONE/APAP 10/325MG TABLET PO PRN ×2 (08:29→20:33)
[2022-09-30] MEDS: FUROSEMIDE 40 MG TABLET PO SCH (08:30)
[2022-09-30] MEDS: LOSARTAN POTASSIUM 50 MG TABLET PO SCH (08:30)
[2022-09-30] MEDS: SERTRALINE HCL 50 MG TABLET PO SCH (08:30)
[2022-09-30] MEDS: ASPIRIN EC 81 MG TABLET.DR PO SCH (08:30)
[2022-09-30] MEDS: POTASSIUM CHLORIDE 20 MEQ TAB.PRT.SR PO SCH (08:31)
[2022-09-30] MEDS: GABAPENTIN 300 MG CAPSULE PO SCH ×2 (08:31→17:12)
[2022-09-30] MEDS: GLYBURIDE PO SCH ×2 (08:31→17:00)
[2022-09-30] MEDS: METFORMIN PO SCH ×2 (08:31→17:00)
[2022-09-30] MEDS: GEMFIBROZIL 600 MG TABLET PO SCH ×2 (08:31→17:13)
[2022-09-30] MEDS: AMLODIPINE BESYLATE 10 MG TABLET PO SCH (08:32)
[2022-09-30] MEDS: CARVEDILOL 12.5 MG TABLET PO SCH ×2 (08:32→17:00)
[2022-09-30] MEDS: MEMANTINE HCL 5 MG TABLET PO SCH (08:32)
[2022-09-30] MEDS: TICAGRELOR 90 MG TABLET PO SCH ×2 (09:22→17:10)
[2022-09-30 09:57] LABS: IRON, SERUM 34 ug/dl (50-175); TOTAL IRON BINDING CAPACITY 345 ug/dl (250-450)
--- NOTE | 2022-09-30 10:00 | NUR ---
RN NOTE PATIENT DASH CATHETER WAS REMOVED PER MD ORDER. PROCEDURE WAS EXPLAIN TO PATIENT, PATIENT TOLERATED WELL, PATIENT DID NOT COMPLAIN OF PAIN OR DISCOMFORT. PATIENT IS RESTING IN ROOM COMFORTABLY, WILL CONTINUE TO MONITOR.
--- NOTE | 2022-09-30 10:10 | NUR ---
RN NOTE PATIENT COMPLAINED OF LEFT ARM PAIN, PAIN LEVEL 9/10, PAIN MEDICATION WAS GIVEN, DOCTOR WAS INFORMED AT BEDSIDE. X-RAY OF LEFT ARM AND SHOULDER WAS PLACED. WILL CONTINUE TO MONITOR.
[2022-09-30 10:11] LABS: FERRITIN 46 ng/mL (8-388)
[2022-09-30] MEDS: CEFTRIAXONE 1 G in IV D5W 50 ML IV SCH (11:57)
[2022-09-30] MEDS: INSULIN REGULAR, HUMAN 100 UNIT/ML 3 ML VIAL SQ PRN ×2 (11:58→16:51)
[2022-09-30] MEDS: AZITHROMYCIN 500 MG in IV D5W 250 ML IV SCH (13:06)
[2022-09-30] MEDS: ENOXAPARIN SODIUM 40 MG/0.4 ML DISP.SYRIN SQ SCH (15:06)
[2022-09-30] MEDS: ONDANSETRON HCL/PF 4 MG/2 ML VIAL IVP PRN (15:26)
--- NOTE | 2022-09-30 15:57 | NUR ---
RN NOTE PATIENT COMPLAINED OF NAUSEA, 1 EMESIS ABOUT 50ML, ZOFRAN WAS GIVEN, WILL CONTINUE TO MONITOR.
[2022-09-30 16:00] VITALS: BP 123/54
--- NOTE | 2022-09-30 16:48 | NUR ---
RN NOTE PATIENT ACCU-CHECK WAS DONE. PER SLIDING SCALE PATIENT SHOULD GET 3 UNITS OF INSULIN BUT, PATIENT REFUSED. 3 UNITS OF INSULIN WAS NOT GIVEN. WILL CONTINUE TO MONITOR.
[2022-09-30] MEDS: CILOSTAZOL 100 MG TABLET PO SCH (17:11)
[2022-09-30] MEDS: ATORVASTATIN 40 MG TABLET PO SCH (17:13)
--- NOTE | 2022-09-30 17:18 | NUR ---
RN NOTE PATIENT 1700 CARVEDILOL 12.5 MG AND 1700 METFORMIN WAS NOT GIVEN, PATIENT REFUSED TO TAKE MEDICATIONS AT THIS TIME. WILL CONTINUE TO MONITOR.
--- NOTE | 2022-09-30 18:43 | NUR ---
RN CLOSING NOTE PATIENT AWAKE IN BED RESTING, A/O X 4. NO S/S OF PAIN NOTED AT THIS TIME. ON ROOM AIR, NO SHORTNESS OF BREATH, NO DISTRESS NOTED. IV ACCESS LAC #18G, INTACT, PATENT AND FLUSHING WELL. PATIENT DASH CATHETER WAS REMOVED PER MD ORDER. SCHEDULE MEDICATIONS ADMINISTERED. PATIENT WAS ENCOURAGE TO TURNED AND REPOSITIONED PER PROTOCOL. FALL AND SAFETY MEASURES IN PLACE, BED ALARM ON, BED IN LOW AND LOCK POSITION, CALL LIGHT AND TABLE WITHIN EASY REACH, SIDE RAILS UP X2. ALL NEEDS ATTENDED AND ANTICIPATED. WILL ENDORSE TO PACE ANALYST NURSE.
--- NOTE | 2022-09-30 19:30 | NUR ---
MS RN OPENING NOTE RECEIVED PATIENT FROM AM NURSE; PATIENT IS ALERT AND ORIENTED X 4, ABLE TO MAKE NEEDS KNOWN; ON ROOM AIR TOLERATING WELL, BREATHING EVENLY AND NO RESPIRATORY DISTRESS NOTED; WITH IV ACCESS ON LAC G18 SALINE LOCK; ENCOURAGED VERBALIZATION OF NEEDS; SAFETY PRECAUTIONS IMPLEMENTED, BED IN LOW POSITION, LOCKED, SIDE RAILS UP X 3; CALL LIGHT WITHIN REACH; WILL CONTINUE TO MONITOR THROUGHOUT SHIFT
[2022-09-30 20:00] VITALS: BP 152/60
--- NOTE | 2022-09-30 21:10 | NUR ---
MS RN NOTE PATIENT COMPLAINED OF PAIN WITH A SCORE OF 7/10, NORCO PRN WAS GIVEN ORDERED; PATIENT TOLERATED WELL AND VERBALIZED DECREASE IN PAIN
[2022-09-30] MEDS: *INSULIN REGULAR(HUMULIN R)HUM 100 UNIT/ML VIAL SQ PRN (22:19)
[2022-09-30] MEDS: INSULIN GLARGINE, 100 UNIT/ML CARTRIDGE SQ SCH (22:21)
--- NOTE | 2022-09-30 22:42 | NUR ---
MS RN NOTE ACCUCHECK WAS DONE AND PATIENT'S BLOOD SUGAR IS 168. ADMINISTERED LANTUS AT LEFT DELTOID SQ. HOWEVER, PATIENT REFUSED THE REGULAR INSULIN BECAUSE ACCORDING TO HER, HER BLOOD SUGAR GOES DOWN EASILY.
[2022-10-01] MEDS: INSULIN REGULAR, HUMAN 100 UNIT/ML 3 ML VIAL SQ PRN ×2 (06:14→11:44)
[2022-10-01] MEDS: HYDROCODONE/APAP 10/325MG TABLET PO PRN ×4 (06:20→21:43)
--- NOTE | 2022-10-01 06:30 | NUR ---
MS RN NOTE ACCUCHECK WAS DONE AND PATIENT'S BLOOD SUGAR IS 239. 6 UNITS OF INSULIN SHOULD BE GIVEN PER SLIDING SCALE BUT PATIENT OPT TO HAVE ONLY 4 UNITS OF INSULIN SQ.
[2022-10-01] MEDS: BLOOD SUGAR DIAGNOSTIC 1 EACH STRIP VI SCH ×4 (06:48→22:08)
--- NOTE | 2022-10-01 06:53 | NUR ---
MS RN CLOSING NOTE PATIENT IS ALERT AND ORIENTED X 4, ABLE TO MAKE NEEDS KNOWN; ON ROOM AIR TOLERATING WELL, BREATHING EVENLY AND NO RESPIRATORY DISTRESS NOTED; WITH IV ACCESS ON LAC G18 SALINE LOCK; ADMINISTERED MEDICATIONS PRESCRIBED; PATIENT'S NEEDS ATTENDED; SAFETY PRECAUTIONS IMPLEMENTED, BED IN LOW POSITION, LOCKED, SIDE RAILS UP X 3; CALL LIGHT WITHIN REACH; WILL ENDORSE TO AM NURSE FOR JUNE
--- NOTE | 2022-10-01 07:07 | NUR ---
MS RN OPENING NOTES RECEIVED PATIENT AWAKE IN BED IN NO ACUTE SIGNS OF DISTRESS. A/O X 4, ABLE TO VERBALIZED NEEDS, DENIES PAIN OR ANY DISCOMFORTS AT THIS TIME. ON ROOM AIR, TOLERATING WELL, BREATHING EVEN AND UNLABORED. IV ACCESS ON LAC G#18 SL, INTACT AND PATENT. SAFETY MEASURES IN PLACE: BED IN LOW POSITION, LOCKED, SIDE-RAILS UP X 2, TRAY TABLE AND CALL LIGHT WITHIN EASY REACH OF PT. WILL CONTINUE TO MONITOR PT ACCORDINGLY.
[2022-10-01 08:00] VITALS: BP 144/67
[2022-10-01] MEDS: GEMFIBROZIL 600 MG TABLET PO SCH ×2 (08:41→16:49)
[2022-10-01] MEDS: GABAPENTIN 300 MG CAPSULE PO SCH ×2 (08:41→16:49)
[2022-10-01] MEDS: MEMANTINE HCL 5 MG TABLET PO SCH (08:42)
[2022-10-01] MEDS: SERTRALINE HCL 50 MG TABLET PO SCH (08:42)
[2022-10-01] MEDS: POTASSIUM CHLORIDE 20 MEQ TAB.PRT.SR PO SCH (08:42)
[2022-10-01] MEDS: ASPIRIN EC 81 MG TABLET.DR PO SCH (08:42)
[2022-10-01] MEDS: TICAGRELOR 90 MG TABLET PO SCH ×2 (08:43→16:49)
[2022-10-01] MEDS: CARVEDILOL 12.5 MG TABLET PO SCH ×2 (08:53→16:48)
[2022-10-01] MEDS: LOSARTAN POTASSIUM 50 MG TABLET PO SCH (08:53)
[2022-10-01] MEDS: GLYBURIDE PO SCH ×2 (08:54→16:50)
[2022-10-01] MEDS: AMLODIPINE BESYLATE 10 MG TABLET PO SCH (08:54)
[2022-10-01] MEDS: METFORMIN PO SCH ×2 (08:54→16:50)
[2022-10-01 10:16] LABS: CALCIUM, SERUM 9.5 mg/dL (8.5-10.1); CREATININE 2.1 mg/dL (0.6-1.3); POTASSIUM 4.4 mmol/L (3.5-5.1)
[2022-10-01] MEDS: ACETAMINOPHEN 325 MG TABLET PO PRN (10:48)
--- NOTE | 2022-10-01 10:50 | NUR ---
RN NOTES PT C/O PAIN IN THE LEFT UPPER ARM, TYLENOL 650MG PO PRN GIVEN AT 1048.
[2022-10-01] MEDS ORDERED: CALCIUM ACETATE 667 MG CAP/TAB PO SCH (11:30)
[2022-10-01] MEDS: CEFTRIAXONE 1 G in IV D5W 50 ML IV SCH (11:37)
--- NOTE | 2022-10-01 11:46 | NUR ---
RN NOTES BS 303 TAKEN BEFORE LUNCH, R-INSULIN COVERAGE PER SLIDING SCALE 12 UNITS SQ BUT PT REFUSED. PT WANTS TO GET 10 UNITS R-INSULIN INSTEAD, 10 UNITS GIVEN.
[2022-10-01] MEDS: AZITHROMYCIN 500 MG in IV D5W 250 ML IV SCH (12:19)
--- NOTE | 2022-10-01 13:00 | NUR ---
RN NOTES IV ACCESS ON THE RAC #18G REMOVED ORDERED BY DR. YA. NEW IV ACCESS INSERTED AT RIGHT HAND #22G SL.
--- NOTE | 2022-10-01 14:45 | NUR ---
RN NOTES PT STILL C/O LEFT UPPER ARM PAIN WITH THE SCALE OF 10/10, NORCO 10-325MG TAB PRN GIVEN AT 1443. WILL CONTINUE TO MONITOR.
[2022-10-01] MEDS: ENOXAPARIN SODIUM 40 MG/0.4 ML DISP.SYRIN SQ SCH (15:13)
[2022-10-01 16:00] VITALS: BP 151/75
[2022-10-01] MEDS: *INSULIN REGULAR(HUMULIN R)HUM 100 UNIT/ML VIAL SQ PRN ×2 (17:01→22:27)
--- NOTE | 2022-10-01 17:02 | NUR ---
RN NOTES BS 148 CHECKED AT 1700 BEFORE DINNER, PT REFUSED INSULIN COVERAGE DESPITE EXPLANATION AND EDUCATION.
[2022-10-01] MEDS: ATORVASTATIN 40 MG TABLET PO SCH (17:30)
[2022-10-01] MEDS: CILOSTAZOL 100 MG TABLET PO SCH (17:30)
--- NOTE | 2022-10-01 18:45 | NUR ---
MS RN CLOSING NOTES PT RESTING IN BED. NO SIGNS OF ACUTE DISTRESS. A/O X 4, ABLE TO VERBALIZE NEEDS. PT STILL COMPLAINTS OF MINIMAL PAIN IN THE LEFT UPPER ARM. PAIN MEDICATION GIVEN ORDERED. IV ACCESS ON R HAND G#22 SL, INTACT AND PATENT. NEEDS ATTENDED. SAFETY MEASURES IN PLACE: BED IN LOW POSITION, LOCKED, SIDE-RAILS UP X 2, TRAY TABLE AND CALL LIGHT WITHIN EASY REACH. WILL ENDORSE JUNE TO STUDENT ACTIVITIES DIRECTOR NURSE.
--- NOTE | 2022-10-01 19:45 | NUR ---
MS RN OPENING NOTES RECEIVED PATIENT IN BED AWAKE, ALERT AND ORIENTED. A/O X 4. NO S/S OF PAIN NOTED AT THIS TIME. ON ROOM AIR, BREATHING EVEN AND UNLABORED. NO DISTRESS OR SHORTNESS OF BREATH NOTED. IV ACCESS ON RIGHT HAND #22G SALINE LOCK, INTACT AND PATENT. SAFETY MEASURES GIVEN WITH BED ON LOWEST AND LOCKED POSITION. CALL LIGHT AND TRAY WITHIN REACH. WILL CONTINUE WITH THE PLAN OF CARE.
[2022-10-01 20:00] VITALS: BP 141/57
--- NOTE | 2022-10-01 22:00 | NUR ---
RN NOTES PATIENT C/O OF LEFT UPPER ARM PAIN WITH THE SCALE OF 7/10, NORCO 10-325MG TAB GIVEN PRN. WILL CONTINUE TO MONITOR.
[2022-10-01] MEDS: INSULIN GLARGINE, 100 UNIT/ML CARTRIDGE SQ SCH (22:25)
--- NOTE | 2022-10-01 22:37 | NUR ---
RN NOTES BS LEVEL IS 265. PATIENT REFUSED TO TAKE 60 UNITS OF LANTUS, TOOK 15 UNITS ONLY. WILL CONTINUE TO MONITOR.
--- NOTE | 2022-10-01 22:53 | NUR ---
RN NOTES BS LEVEL IS 265. PATIENT REFUSED TO TAKE 6 UNITS OF REGULAR INSULIN, INSTEAD PATIENT TOOK 5 UNITS ONLY. WILL CONTINUE TO MONITOR.
[2022-10-02 07:00] VITALS: BP 158/67
[2022-10-02] MEDS: LOSARTAN POTASSIUM 50 MG TABLET PO SCH (08:33)
[2022-10-02] MEDS: SERTRALINE HCL 50 MG TABLET PO SCH (08:33)
[2022-10-02] MEDS: CARVEDILOL 12.5 MG TABLET PO SCH ×2 (08:34→16:22)
[2022-10-02] MEDS: MEMANTINE HCL 5 MG TABLET PO SCH (08:34)
[2022-10-02] MEDS: TICAGRELOR 90 MG TABLET PO SCH ×2 (08:34→16:15)
[2022-10-02] MEDS: ASPIRIN EC 81 MG TABLET.DR PO SCH (08:34)
[2022-10-02] MEDS: GABAPENTIN 300 MG CAPSULE PO SCH ×2 (08:35→16:14)
[2022-10-02] MEDS: AMLODIPINE BESYLATE 10 MG TABLET PO SCH (08:35)
[2022-10-02] MEDS: GEMFIBROZIL 600 MG TABLET PO SCH ×2 (08:35→16:14)
[2022-10-02] MEDS: METFORMIN PO SCH ×2 (08:35→16:15)
[2022-10-02] MEDS: GLYBURIDE PO SCH ×2 (08:35→16:15)
[2022-10-02] MEDS: BLOOD SUGAR DIAGNOSTIC 1 EACH STRIP VI SCH ×4 (08:49→21:11)
[2022-10-02] MEDS: HYDROCODONE/APAP 10/325MG TABLET PO PRN (11:18)
[2022-10-02] MEDS: INSULIN REGULAR, HUMAN 100 UNIT/ML 3 ML VIAL SQ PRN ×2 (11:21→17:16)
[2022-10-02] MEDS: CEFTRIAXONE 1 G in IV D5W 50 ML IV SCH (11:21)
[2022-10-02] MEDS: AZITHROMYCIN 500 MG in IV D5W 250 ML IV SCH (12:30)
[2022-10-02] MEDS: ACETAMINOPHEN 325 MG TABLET PO PRN (14:07)
[2022-10-02] MEDS: ONDANSETRON HCL/PF 4 MG/2 ML VIAL IVP PRN (15:22)
[2022-10-02] MEDS: ENOXAPARIN SODIUM 40 MG/0.4 ML DISP.SYRIN SQ SCH (15:30)
[2022-10-02] MEDS: ATORVASTATIN 40 MG TABLET PO SCH (17:11)
[2022-10-02] MEDS: CILOSTAZOL 100 MG TABLET PO SCH (17:11)
--- NOTE | 2022-10-02 18:09 | NUR ---
END OF SHIFT SUMMARY PATIENT IS A/O X4, AFEBRILE. ABLE TO MAKE NEEDS KNOWN. INDEPENDENT WITH REPOSITIONING. RECEIVED PATIENT WITHOUT AN IV, INSERTED A NEW LINE ON R HAND #22G, INTACT AND PATENT. TOLERATING ANTIBIOTICS WELL. BLOOD GLUCOSE MONITORED, INSULIN GIVEN BUT PT WAS SAYING SHE ONLY NEEDS 5u. EDUCATION GIVEN ON THE IMPORTANCE OF GETTING THE RIGHT DOSAGE, STILL INSISTED WITH 5u. REFUSED SOME MEDS WELL. SAFETY MEASURES MAINTAINED. BED IN LOWEST POSITION, BRAKES LOCKED. SIDE RAILS UP X2. CALL LIGHT WITHIN REACH. WILL ENDORSE CONTINUITY OF CARE TO ONCOMING SHIFT. AROUND 3 PM IN THE AFTERNOON. PATIENT CALLED AND ASKING TO GO TO THE BATHROOM. I ASSISTED HER BUT TOWARDS THE MIDDLE PART PATIENT BECAME WOBBLY AND SLOWLY I ASSISTED HER TO SIT ON THE FLOOR. I IMMEDIATELY CALLED SOMEONE TO HELP ME STAND HER UP AND PUT HER BACK TO BED. HE DID NOT HIT ANY PARTS OF HER BODY. I PLACED THE PATIENT ON 2L VIA NC FOR SUPPORT. LATER ON I OFFERED COMMODE FOR SAFETY BUT PATIENT REFUSED. SHE WAS SAYING THAT SHE WENT TO THE BATHROOM BY HERSELF TWICE ALREADY AND NOBODY HELPED HER. I ASKED IF SHE WAS USING THE CALL LIGHT BUTTON TO ASK FOR HELP BUT SHE SAID NO. I EDUCATED HER THE IMPORTANCE OF USING THE CALL LIGHT BUTTON THE NEXT TIME SHE IS CALLING FOR HELP.
[2022-10-02 20:00] VITALS: BP 110/45
[2022-10-02] MEDS: *INSULIN REGULAR(HUMULIN R)HUM 100 UNIT/ML VIAL SQ PRN (21:14)
[2022-10-02] MEDS: INSULIN GLARGINE, 100 UNIT/ML CARTRIDGE SQ SCH (21:17)
--- NOTE | 2022-10-02 21:17 | NUR ---
LANTUS INSULIN NON ADMINISTERED Patient in bed, blood glucose 201mg/dl. Good appetite. Patient refused Lantus insulin, education given, patient declined.
--- NOTE | 2022-10-03 06:24 | NUR ---
END OF SHIFT REPORT Patient in bed, A/O x4. Oxygen sat high 90's in 2L NC. Right hand IV peripheral line intact, on IV abx. Afebrile. Ambulated to the bathroom, voided urine, observed no sob with exertion. Denies chest pain. Accu check ACHS with insulin SS parameters. Plan for cont abx. Will endorse to oncoming RN.
[2022-10-03] MEDS: INSULIN REGULAR, HUMAN 100 UNIT/ML 3 ML VIAL SQ PRN ×2 (06:33→12:25)
[2022-10-03 06:35] LABS: BASOPHILS # (AUTO) 0.1 K/uL (0.0-0.2); BASOPHILS % (AUTO) 1.3 % (0.0-2.0); EOSINOPHILS % (AUTO) 6.8 % (0.0-6.0); HEMATOCRIT 28 % (33-45); HEMOGLOBIN 9.6 g/dL (11.5-14.8); LYMPHOCYTES # (AUTO) 1.9 K/uL (0.8-4.8); MEAN CORPUSCULAR HGB CONC 34 g/dl (31.0-36.0); MEAN CORPUSCULAR VOLUME 85 fL (82-100); MONOCYTES # (AUTO) 0.9 K/uL (0.1-1.30); MONOCYTES % (AUTO) 10.8 % (2.0-12.0); NEUTROPHILS # (AUTO) 4.8 K/uL (1.8-8.9); NEUTROPHILS % (AUTO) 58.1 % (43.0-81.0); PLATELET COUNT (AUTO) 409 K/uL (150-450); RED BLOOD CELL COUNT(AUTO) 3.36 MIL/uL (4.0-5.2); WHITE BLOOD COUNT (AUTO) 8.3 K/uL (4.3-11.0)
[2022-10-03 07:00] VITALS: BP 131/57
[2022-10-03 07:18] LABS: CREATININE 2.7 mg/dL (0.6-1.3); MAGNESIUM 2.6 mg/dL (1.8-2.4); PHOSPHORUS 6.6 mg/dL (2.5-4.9); POTASSIUM 4.8 mmol/L (3.5-5.1)
--- NOTE | 2022-10-03 07:40 | NUR ---
MS BURR OPENING NOTES RECEIVED PATIENT IN BED AWAKE, ALERT AND ORIENTED. A/O X 4. NO S/S OF PAIN NOTED AT THIS TIME. ON ROOM AIR, BREATHING EVEN AND UNLABORED. NO DISTRESS OR SHORTNESS OF BREATH NOTED. IV ACCESS ON RIGHT HAND #22G SALINE LOCK, INTACT AND PATENT. SAFETY MEASURES GIVEN WITH BED ON LOWEST AND LOCKED POSITION. CALL LIGHT AND TRAY WITHIN REACH. WILL CONTINUE WITH THE PLAN OF CARE. Addendum: 10/03/22 at 1605 by MYRTLE HERRERA RN PATIENT ON OXYGEN AT 2LPM, TOLERATING WELL.
[2022-10-03] MEDS: BLOOD SUGAR DIAGNOSTIC 1 EACH STRIP VI SCH ×3 (08:15→17:53)
[2022-10-03] MEDS: ASPIRIN EC 81 MG TABLET.DR PO SCH (09:55)
[2022-10-03] MEDS: GABAPENTIN 300 MG CAPSULE PO SCH ×2 (09:55→16:34)
[2022-10-03] MEDS: CARVEDILOL 12.5 MG TABLET PO SCH ×2 (09:56→17:37)
[2022-10-03] MEDS: MEMANTINE HCL 5 MG TABLET PO SCH (09:56)
[2022-10-03] MEDS: AMLODIPINE BESYLATE 10 MG TABLET PO SCH (09:56)
[2022-10-03] MEDS: LOSARTAN POTASSIUM 50 MG TABLET PO SCH (09:57)
[2022-10-03] MEDS: GEMFIBROZIL 600 MG TABLET PO SCH ×2 (09:57→16:33)
[2022-10-03] MEDS: SERTRALINE HCL 50 MG TABLET PO SCH (09:57)
[2022-10-03] MEDS: METFORMIN PO SCH ×2 (10:00→17:37)
[2022-10-03] MEDS: GLYBURIDE PO SCH ×2 (10:00→17:37)
[2022-10-03] MEDS: TICAGRELOR 90 MG TABLET PO SCH ×2 (10:00→17:37)
[2022-10-03] MEDS: ACETAMINOPHEN 325 MG TABLET PO PRN ×2 (10:05→16:34)
[2022-10-03] MEDS: CEFTRIAXONE 1 G in IV D5W 50 ML IV SCH (12:23)
[2022-10-03 16:00] VITALS: BP 103/32
[2022-10-03] MEDS: ENOXAPARIN SODIUM 40 MG/0.4 ML DISP.SYRIN SQ SCH (16:33)
[2022-10-03 17:37] VITALS: BP 110/60
[2022-10-03] MEDS: ATORVASTATIN 40 MG TABLET PO SCH (18:40)
[2022-10-03] MEDS: CILOSTAZOL 100 MG TABLET PO SCH (18:40)
--- NOTE | 2022-10-03 19:45 | NUR ---
RN CLOSING NOTES PATIENT IN BED AWAKE A/O X 4. NO S/S OF PAIN NOTED AT THIS TIME. PATIENT ON ROOM AIR TOLERATING WELL. BREATHING EVEN AND UNLABORED. NO DISTRESS OR SHORTNESS OF BREATH NOTED. PATIENT FOR DISCHARGED AT 8PM, WILL BE SUPERVISOR WALL MIRROR DEPARTMENT BY DAUGHTER. DISCHARGED INSTRUCTION GIVEN TO PATIENT, HOME MEDS GIVEN WELL. VERBALIZED UNDERSTANDING. ALL BELONGINGS ACCOUNTED TO THE PATIENT. IV ACCESS REMOVED NO SIGNS OF BLEEDING NOTED. ENDORSED TO NIGHT NURSE.
--- NOTE | 2022-10-03 20:05 | NUR ---
MS INFANT TEACHER NOTE PT WALKED DOWN TO LOBBY WITH KINDRA SORENSON AT AT THIS TIME. PT BELONGINGS ACCOUNTED FOR. IV ACCESS REMOVED FROM DAY SHIFT RN, NO SIGNS OF BLEEDING. NO SOB OR S/S OF RESPIRATORY DISTRESS. PT MEDICALLY STABLE. NO COMPLAINTS OF PAIN OR DISCOMFORT. DISCHARGE INSTRUCTIONS AND PAPERWORK ALREADY PROVIDED BY DAY SHIFT DORIS BURR. PICKED UP BY DAUGHTER IN [facility].
== END 2022-10-03 20:05 | disposition home or self-care (01) | DRG 194 ==
LOC: ER 10:14 → TELE 15:50 → MED 09-29 10:48
PROVIDERS: ADMIT Internal Medicine; ATTEND Nurse Practitioner Acute Care
DX: I11.0 Hypertensive heart disease with heart failure (principal); N17.0 Acute kidney failure with tubular necrosis; J96.01 Acute respiratory failure with hypoxia; J15.9 Unspecified bacterial pneumonia; E87.1 Hypo-osmolality and hyponatremia; D63.8 Anemia in other chronic diseases classified elsewhere; E83.39 Other disorders of phosphorus metabolism; I50.33 Acute on chronic diastolic (congestive) heart failure; Z20.822 Contact with and (suspected) exposure to COVID-19; E11.65 Type 2 diabetes mellitus with hyperglycemia; Z79.4 Long term (current) use of insulin; Z79.899 Other long term (current) drug therapy; Z79.82 Long term (current) use of aspirin; I25.10 Atherosclerotic heart disease of native coronary artery without angina pectoris; F17.200 Nicotine dependence, unspecified, uncomplicated; E83.42 Hypomagnesemia; J98.11 Atelectasis; Z83.3 Family history of diabetes mellitus; Z95.5 Presence of coronary angioplasty implant and graft; Z79.02 Long term (current) use of antithrombotics/antiplatelets; T50.2X5A Adverse effect of carbonic-anhydrase inhibitors, benzothiadiazides and other diuretics, initial encounter; Y92.9 Unspecified place or not applicable; M48.07 Spinal stenosis, lumbosacral region
CPT/HCPCS: 36415; 71045-TC; 72131-TC; 73030-TC; 73090-TC; 80048-TC; 80053-TC; 80076-TC; 82728-TC; 82962-TC; 83540-TC; 83735-TC; 83880; 84100-TC; 84443-TC; 84484-TC; 85025-TC; 85730-TC; 87081-TC; 93307-TC; 93971-TC; 97110-TC; 97116-TC; 97530-TC; C9803; G0378; J0456; J0696; J1650; J1815; J1885; J1940; J2405; J3475; J7030; J7040; J7050; J7060